=== PATIENT | male | born 1930 | race Caucasian/White ===

== ENCOUNTER → 2016-05-02 | Outpatient (CLI) | payer OTHER, MEDICARE ==
[~2016-05-02] MED LIST: ASPI-232; CLN150 PO; CLOP1TAB15 PO; FINA5TAB PO; HYT/2 PO; PRLSR20 PO; TNR25 PO; ZCR40 PO
[2016-05-02 11:05] LABS: BASO % 0.4 %; BASO ABS # 0.03 K/uL (0-0.2); COMPLETE YES; EOS % 1.9 %; HEMATOCRIT 51.1 % (42-52); IG% 0.3 %; LYMPH % 24.1 %; MEAN CELL VOLUME 87.4 fL (80-100); MEAN CORPUSCULAR HEMOGLOBIN 30.3 pg (25-34); MEAN CORPUSCULAR HGB CONC 34.6 g/dl (32-36); MEAN PLATELET VOLUME 10.9 fL (7.4-10.4); MONO % 7.1 %; NEUT % 66.2 %; PLATELET COUNT 180 K/uL (130-400); RED BLOOD COUNT 5.85 M/uL (4.7-6.1); WHITE BLOOD COUNT 7.46 K/uL (4.8-10.8)
[2016-05-02 11:32] LABS: ESTIMATED AVERAGE GLUCOSE 120 mg/dl; HA1C FLAG Normal (Normal)
[2016-05-02 11:36] LABS: ALT/SGPT 25 U/L (12-78); AST/SGOT 18 U/L (15-37); BLOOD UREA NITROGEN 25 mg/dl (7-18); BUN/CREATININE RATIO 22.6 (10-20); CALCIUM 9.1 mg/dl (8.5-10.1); CARBON DIOXIDE 29 mmol/L (21-32); CHLORIDE 105 mmol/L (98-107); GLUCOSE 96 mg/dl (70-99); POTASSIUM 4.3 mmol/L (3.5-5.1); SODIUM 143 mmol/L (136-145); URIC ACID 5.3 mg/dl (2.6-7.2)
[2016-05-02 13:35] LABS: URINE APPEARANCE CLOUDY (CLEAR); URINE BILIRUBIN NEG (NEG); URINE COLOR YELLOW; URINE NITRITE POS (NEG); URINE PH 6.5 (4.5-7.5); URINE SPECIFIC GRAVITY 1.017 (1.000-1.030); UROBILINOGEN NEG (NEG); ZZUR CULT IF INDIC CLEAN CATCH YES
[2016-05-02 13:52] LABS: MANUAL MICROSCOPIC REQUIRED? NO; REVIEW REQ? NO
--- NOTE | 2016-05-06 10:48 | CODING QUERY MEDICAL NECESSITY ---
SUPPORTING DIAGNOSIS NEEDED Dr. Wilson, A supporting diagnosis is required for the test/procedure performed on this patient in order for us to be reimbursed by the patient's insurance. Please provide a supporting diagnosis for the following test/procedure listed below next to the test name along with your signature. *If there is no additional diagnosis for this patient that would support the following test/procedure please document that below next to the test/procedure. Test(s)/Procedure(s) that require a supporting diagnosis: * [id number] GLYCATED HEMOGLOBIN DIAGNOSIS: DATE OF SERVICE: 05/02/16 Provider Signature: Date: Thank you Gabriele Lloyd [facility] Information Management Once completed, please kindly fax back to [phone] For questions please call [phone]
== END | disposition home or self-care (01) ==
LOC: C.LAB1850 10:13
PROVIDERS: ATTEND Internal Medicine
DX: K22.70 Barrett's esophagus without dysplasia (principal); R73.9 Hyperglycemia, unspecified

== ENCOUNTER → 2016-07-05 | Outpatient (CLI) | payer OTHER, MEDICARE ==
[2016-07-05 09:57] LABS: URINE APPEARANCE CLOUDY (CLEAR); URINE BILIRUBIN NEG (NEG); URINE COLOR YELLOW; URINE NITRITE NEG (NEG); URINE SPECIFIC GRAVITY 1.018 (1.000-1.030); UROBILINOGEN NEG (NEG)
[2016-07-05 09:58] LABS: MANUAL MICROSCOPIC REQUIRED? NO; REVIEW REQ? NO
== END | disposition home or self-care (01) ==
LOC: C.LAB1850 08:31
PROVIDERS: ATTEND Internal Medicine
DX: R30.0 Dysuria (principal)

== ENCOUNTER → 2016-10-13 | Outpatient (CLI) | payer OTHER, MEDICARE ==
[2016-10-13 09:38] LABS: BASO % 0.6 %; BASO ABS # 0.03 K/uL (0-0.2); COMPLETE YES; EOS % 2.4 %; HEMATOCRIT 53.3 % (42-52); IG% 0.2 %; LYMPH % 30.4 %; LYMPH ABS # 1.54 K/uL (1.2-3.4); MEAN CELL VOLUME 87.4 fL (80-100); MEAN CORPUSCULAR HEMOGLOBIN 28.9 pg (25-34); MEAN PLATELET VOLUME 10.6 fL (7.4-10.4); MONO % 10.5 %; NEUT % 55.9 %; PLATELET COUNT 166 K/uL (130-400); WHITE BLOOD COUNT 5.06 K/uL (4.8-10.8)
[2016-10-13 09:44] LABS: URINE APPEARANCE CLEAR (CLEAR); URINE BILIRUBIN NEG (NEG); URINE COLOR YELLOW; URINE EPITHELIAL CELL AUTO 0-5 /lpf (0-5); URINE NITRITE NEG (NEG); URINE PH 7.5 (4.5-7.5); URINE SPECIFIC GRAVITY 1.014 (1.000-1.030); UROBILINOGEN NEG (NEG)
[2016-10-13 09:51] LABS: MANUAL MICROSCOPIC REQUIRED? NO; REVIEW REQ? YES
[2016-10-13 09:59] LABS: ALT/SGPT 29 U/L (12-78); AST/SGOT 20 U/L (15-37); BLOOD UREA NITROGEN 23 mg/dl (7-18); BUN/CREATININE RATIO 20.6 (10-20); CALCIUM 9.2 mg/dl (8.5-10.1); CARBON DIOXIDE 28 mmol/L (21-32); CHLORIDE 107 mmol/L (98-107); CHOLESTEROL 134 mg/dl (0-200); GLUCOSE 103 mg/dl (70-99); POTASSIUM 3.9 mmol/L (3.5-5.1); SODIUM 141 mmol/L (136-145); TRIGLYCERIDES 130 mg/dl (0-150); VERY LOW DENSITY LIPOPROT CALC 26 mg/dl
[2016-10-13 10:02] LABS: CHOLESTEROL/HDL RATIO 2.7; HDL CHOLESTEROL 49 mg/dl; LDL CHOLESTEROL CALCULATED 59 mg/dl
[2016-10-13 10:32] LABS: ESTIMATED AVERAGE GLUCOSE 126 mg/dl; HA1C FLAG Normal (Normal)
--- NOTE | 2016-10-21 08:37 | CODING QUERY MEDICAL NECESSITY ---
SUPPORTING DIAGNOSIS NEEDED Dr. Wilson, A supporting diagnosis is required for the test/procedure performed on this patient in order for us to be reimbursed by the patient's insurance. Please provide a supporting diagnosis for the following test/procedure listed below next to the test name along with your signature. *If there is no additional diagnosis for this patient that would support the following test/procedure please document that below next to the test/procedure. Test(s)/Procedure(s) that require a supporting diagnosis: * [id number] GLYCATED HEMOGLOBIN DIAGNOSIS: DATE OF SERVICE: 10/13/16 Provider Signature: Date: Thank you Gabriele Lloyd [facility] Information Management Once completed, please kindly fax back to [phone] For questions please call [phone]
== END | disposition home or self-care (01) ==
LOC: C.LAB1850 07:07
PROVIDERS: ATTEND Internal Medicine
DX: N39.0 Urinary tract infection, site not specified (principal); R73.9 Hyperglycemia, unspecified

== ENCOUNTER → 2017-04-18 | Outpatient (CLI) | payer OTHER, MEDICARE ==
[2017-04-18 09:34] LABS: BASO % 0.4 %; BASO ABS # 0.03 K/uL (0-0.2); EOS % 2.2 %; EOS ABS # 0.15 K/uL (0-0.5); IG# 0.01 K/uL (0.00-0.02); LYMPH % 29.1 %; LYMPH ABS # 1.95 K/uL (1.2-3.4); MEAN CELL VOLUME 88.3 fL (80-100); MEAN PLATELET VOLUME 11.3 fL (7.4-10.4); MONO ABS # 0.74 K/uL (0.11-0.59); NEUT % 57.2 %; NEUT ABS # 3.83 K/uL (1.4-6.5); PLATELET COUNT 180 K/uL (130-400); RED CELL DISTRIBUTION WIDTH CV 14.2 % (11.5-14.5); WHITE BLOOD COUNT 6.71 K/uL (4.8-10.8)
[2017-04-18 09:59] LABS: HEMOGLOBIN A1C 5.9 % (4.5-5.6)
[2017-04-18 10:55] LABS: ALT/SGPT 26 U/L (12-78); AST/SGOT 17 U/L (15-37); BLOOD UREA NITROGEN 24 mg/dl (7-18); CARBON DIOXIDE 28 mmol/L (21-32); CHOLESTEROL 130 mg/dl (0-200); CREATININE 1.11 mg/dl (0.60-1.40); GLUCOSE 88 mg/dl (70-99); POTASSIUM 3.9 mmol/L (3.5-5.1); SODIUM 140 mmol/L (136-145)
[2017-04-18 11:06] LABS: LDL CHOLESTEROL CALCULATED 56 mg/dl
== END | disposition home or self-care (01) ==
LOC: C.LAB1850 07:33
PROVIDERS: ATTEND Internal Medicine
DX: N39.0 Urinary tract infection, site not specified (principal)

== ENCOUNTER 2017-04-28 11:32 | Emergency (ER) | payer OTHER, MEDICARE ==
[~2017-04-28] VITALS: Ht 177.8 cm; Wt 70.0 kg
[2017-04-28 11:47] VITALS: TEMP 36.4; Ht 177.8 cm; Wt 70.0 kg
[2017-04-28 12:11] VITALS: O2SAT 98
[2017-04-28] MEDS ORDERED: NITR50CA39 PO (12:14)
[2017-04-28] MEDS ORDERED: CLN150 PO (12:14)
[2017-04-28] MEDS ORDERED: PANT20TA2 PO (12:14)
[2017-04-28] MEDS ORDERED: XYLOCAINE 1%/SOD BICARB 20 ML VIAL INFIL ONE (12:15)
[2017-04-28 12:35] VITALS: BP 125/88; O2SAT 97
[2017-04-28 12:36] VITALS: PULSE 58
--- NOTE | 2017-04-28 14:02 | EMERGENCY ROOM VISIT NOTE ---
History Report prepared by Negin: Sandee Morejon Under the Supervision of: Dr. Ilya Sommer M.D. 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 The patient was coming to the hospital to visit his . While he was walking in the parking lot he tripped and fell. He hit his face on the pavement. He cut his upper lip and is currently complaining of some pain around the area. The area is actively bleeding. The patient denies any other injuries from his fall. His glasses did not break. The patient denies any LOC. He denies any headache, jaw pain, dental pain, neck pain, cough, congestion, and any injury to his extremities. While he was in the parking lot someone checked his pulse and found it to be 30 BPM and the patient was brought to the ED for further evaluation. The patient states that he had a routine physical examination last week that was normal. He does take aspirin and Plavix. His tetanus is up to date. 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 Pt denies jaw pain, dental pain, congestion, and extremity injury. Review of Systems See HPI for pertinent positives & negatives. A total of 10 systems reviewed and were otherwise negative. Past Medical & Surgical Medical Problems: (1) cataract surgery (2) Diabetes mellitus (3) GERD (gastroesophageal reflux disease) (4) Heart disease (5) HTN (hypertension) (6) Myocardial infarction Surgical Problems: (1) Hx of tonsillectomy Family History Diabetes mellitus Heart disease Social History Smoking Status: Never Smoker Alcohol Use: occasionally Marital Status: Housing Status: lives with significant other Occupation Status: retired Current/Historical Medications Scheduled Aspirin (Aspir-81), 1 TABLET DAILY Atenolol (Atenolol), 12.5 MG PO BID Clopidogrel (Plavix), 1 TAB PO DAILY Finasteride (Proscar), 1 TAB PO DAILY Nitrofurantoin Macrocrystals (Nitrofurantoin Macrocryst), 50 MG PO DAILY Pantoprazole Sodium (Protonix), 20 MG PO DAILY Simvastatin (Simvastatin), 40 MG PO DAILY Sulindac (Sulindac), 150 MG PO DAILY Terazosin Hcl (Hytrin), 2 MG PO DAILY Allergies Coded Allergies: Cefuroxime (Verified Allergy, Unknown, 05/15/09) Sulfa Drugs (Verified Allergy, Unknown, 05/15/09) Physical Exam Vital Signs Date Time Temp Pulse Resp B/P (MAP) Pulse Ox O2 Delivery O2 Flow Rate FiO2 04/28/17 12:36 58 04/28/17 12:35 61 18 125/88 97 Room Air 04/28/17 12:11 98 Room Air 04/28/17 11:47 36.4 36 18 119/74 97 Room Air Physical Exam GENERAL: Patient is in no acute distress. HEENT: Moist mucous membranes, dried blood on his face, apparent laceration to the left upper lip which is difficult to describe as it is crusted with blood. No dental trauma. Normal bite. No scalp hematomas. Once the laceration was cleansed it was noted to be 2cm stellate macerated and just touching the edge of the clint border confined mostly to the mucous membrane portion of the lip. NECK: No stridor, no adenopathy, no meningismus, trachea is midline, no tenderness to posterior C-spine. LUNGS: Clear to auscultation bilaterally, no wheeze, no rhonchi, breath sounds equal. HEART: Somewhat irregular rhythm with a normal rate, no murmurs. ABDOMEN: Soft, nontender, bowel sounds positive, no hernias, no peritonitis. EXTREMITIES: No cyanosis or edema, full range of motion of all the joints without pain or difficulty, no signs for acute trauma. NEUROLOGIC: Oriented x 3, no acute motor or sensory deficits, no focal weakness. SKIN: No rash, no jaundice, no diaphoresis. Medical Decision & Procedures Procedure Location: upper left lip Total length: 2 cm Complexity: simple Verbal consent was obtained after the risks and benefits were explained, including but not limited to bleeding, scarring, infection, pain, and bone/joint /nerve damage. At this time, the risks of the procedure are less than the risks of NOT performing the procedure. A time out was taken and the correct patient and site identified. The skin was prepped with betadine. The target area was anesthetized with 2 ml of 1% lidocaine without epinephrine. Cleaned with wet 4x4 thoroughly. The skin was re-prepped with betadine and a sterile field set. The wound was explored for foreign bodies and none found. Examination revealed no injury to deep structures such as tendons, bone, or significant blood vessels. Debridement was not performed. The wound edges were approximated using 3, 4-0 simple interrupted Vicryl sutures. Hemostasis and excellent approximation was achieved. Detailed wound care instructions and signs and symptoms of infection reviewed with the patient. No complications and the patient tolerated the procedure well. ECG Indication: bradycardia Rate (beats per minute): 66 Rhythm: normal sinus, other (significant baseline artifact) Findings: RBBB, no ectopy, other (ECG interpreted by myself) Comparison ECG Date: 07/08/14 Change: no significant change ED Course 1204: The patient was evaluated in room B1. A complete history and physical exam was performed. 1212: At this time I performed a laceration repair. Please see the procedure note above for further details. 1215: Lidocaine HCl 2 ml 1230: I reassessed the patient at this time. He is feeling better and resting comfortably. I discussed the results and treatment plan with the patient. I answered all pertaining questions that he had. He expressed understanding and verbalized agreement. The patient will be discharged home. Medical Decision Differential diagnoses includes facial fracture, lip laceration, head or neck injury, extremity trauma, syncope, dysrhythmia. The patient presents with a left upper lip laceration after falling in the hospital parking lot. He does not want imaging or any laboratory testing. He is here only to have the laceration repair. He is not concerned about scarring. His tetanus is current. He does not have a headache and there was no scalp trauma. The patient was brought to a higher level of care as his pulse was recorded at 30. He was awake and interactive though during this time with a good blood pressure. On the monitor, he has fairly frequent PVCs, I suspect when taking the pulse, it was difficult to feel the PVCs and thus, the pulse was recorded lower than actual. EKG shows a normal sinus rhythm, there is a right bundle-branch block. No ischemia. The EKG is unchanged compared to previous. The patient's laceration was repaired as above, no complications. The patient is very anxious to leave, he has agreed to return if worsening. Medication Reconcilliation Current Medication List: was personally reviewed by me Blood Pressure Screening Patient's blood pressure: Normal blood pressure Impression Primary Impression: Fall Additional Impression: Lip laceration Scribe Attestation The scribe's documentation has been prepared under my direction and personally reviewed by me in its entirety. I confirm that the note above accurately reflects all work, treatment, procedures, and medical decision making performed by me. Departure Information Dispostion Home / Self-Care Referrals Drew Wilson M.D. (PCP) Forms HOME CARE DOCUMENTATION FORM, IMPORTANT VISIT INFORMATION Patient Instructions My [facility] Additional Instructions sutures out 5-7 days as discussed if they do not dissolve keep clean with water return for fever, redness, drainage consider seeing dentist to be sure your teeth are ok Problem Qualifiers Primary Impression: Fall Encounter type: initial encounter Qualified Codes: W19.XXXA - Unspecified fall, initial encounter
== END 2017-04-28 12:41 | disposition home or self-care (01) ==
LOC: C.EDB 11:33
DX: S01.511A Laceration without foreign body of lip, initial encounter (principal); W01.0XXA Fall on same level from slipping, tripping and stumbling without subsequent striking against object, initial encounter; Y92.481 Parking lot as the place of occurrence of the external cause; E11.9 Type 2 diabetes mellitus without complications; K21.9 Gastro-esophageal reflux disease without esophagitis; I11.9 Hypertensive heart disease without heart failure; I25.2 Old myocardial infarction; Z83.3 Family history of diabetes mellitus; Z82.49 Family history of ischemic heart disease and other diseases of the circulatory system; Z79.82 Long term (current) use of aspirin; Z79.02 Long term (current) use of antithrombotics/antiplatelets; Z79.899 Other long term (current) drug therapy

== ENCOUNTER 2017-05-04 07:40 | Emergency (ER) | payer OTHER, MEDICARE ==
[~2017-05-04 07:40] MED LIST changes: +NITR50CA39 PO; +PANT20TA2 PO; -PRLSR20 PO
[2017-05-04 07:41] VITALS: BP 121/78; PULSE 88; TEMP 36.7; O2SAT 96
--- NOTE | 2017-05-04 08:42 | EMERGENCY ROOM VISIT NOTE ---
ED Visit Note First contact with patient: 07:46 CHIEF COMPLAINT: Suture removal This patient returns to the ED today for removal of sutures that were placed 6 days ago. There has been no swelling, redness, or drainage from the wound. There is a large scab formed over the suture line. The patient feels like the laceration is healing well. REVIEW OF SYSTEMS: Head: No headache, injury or neck pain. Skin: No rash, new lesions, or masses. General: No fever or chills, fatigue, loss of appetite , or significant recent weight gain or loss. PMH: The patient is healthy; there is no significant medical or surgical history. SOCIAL HISTORY: Patient lives at home. PHYSICAL EXAM: Vital Signs: Reviewed Nurse's notes. There is a sutured wound on the upper lip, left side with a large scab. With no signs of infection. There is no erythema, swelling, or tenderness. EMERGENCY DEPARTMENT COURSE: The patient had absorbable sutures placed. There is one at the most distal end of the laceration that has not absorbed and is easily accessible. I did educate the patient that removing the scab to remove stitches would be more harmful is are as wound healing goes and scarring. He felt comfortable with the plan for continued wound care. He will follow-up with his PCP for reevaluation. Patient will return to the ER for worsening of symptoms or any medical concerns. The sutures were removed without any difficulty and there was no separation of the wound edges. DIAGNOSIS: Healing laceration and suture removal DISCHARGE INSTRUCTIONS AND TREATMENT: Wash any remaining crusts off of the wound today and resume your normal activities.
== END 2017-05-04 07:53 | disposition home or self-care (01) ==
LOC: C.EDB 07:40 → C.EDA 07:53
DX: S01.511D Laceration without foreign body of lip, subsequent encounter (principal); X58.XXXD Exposure to other specified factors, subsequent encounter

== ENCOUNTER 2017-05-08 07:44 | Emergency (ER) | payer OTHER, MEDICARE ==
[~2017-05-08] VITALS: Ht 177.8 cm; Wt 72.4 kg
[2017-05-08 07:49] VITALS: BP 100/64; PULSE 62; TEMP 36.4; O2SAT 97; Ht 177.8 cm; Wt 72.4 kg
--- NOTE | 2017-05-08 08:11 | EMERGENCY ROOM VISIT NOTE ---
ED Visit Note First contact with patient: 08:00 CHIEF COMPLAINT: Suture removal This patient returns to the ED today for removal of sutures that were placed 10days ago. There has been no swelling, redness, or drainage from the wound. The patient feels like the laceration is healing well. REVIEW OF SYSTEMS: A complete 6-point Review of Systems was discussed with the patient, with pertinent positives and negatives listed in the History of Present Illness. All remaining Review of Systems questions can be considered negative unless otherwise specified. PMH: The patient is healthy; there is no significant medical or surgical history. SOCIAL HISTORY: Patient lives at home. PHYSICAL EXAM: Vital Signs: Reviewed Nurse's notes. There is a sutured wound on the upper lip with no signs of infection. There is no erythema, swelling, or tenderness. EMERGENCY DEPARTMENT COURSE: The sutures were removed without any difficulty and there was no separation of the wound edges. He was here on the 25th for removal however it was not ready to be removed. Problem List Medical Problems: (1) cataract surgery Status: Resolved (2) Diabetes mellitus Status: Chronic (3) GERD (gastroesophageal reflux disease) Status: Chronic (4) Heart disease Status: Chronic (5) HTN (hypertension) Status: Chronic (6) Myocardial infarction Status: Resolved Surgical Problems: (1) Hx of tonsillectomy Status: Resolved Current/Historical Medications Scheduled Aspirin (Aspir-81), 1 TABLET QAM Atenolol (Atenolol), 12.5 MG PO BID Clopidogrel (Plavix), 1 TAB PO QAM Finasteride (Proscar), 1 TAB PO HS Nitrofurantoin Macrocrystals (Nitrofurantoin Macrocryst), 50 MG PO HS Pantoprazole Sodium (Protonix), 20 MG PO DAILY Simvastatin (Simvastatin), 40 MG PO HS Sulindac (Sulindac), 150 MG PO BID Terazosin Hcl (Hytrin), 2 MG PO HS Allergies Coded Allergies: Cefuroxime (Verified Allergy, Unknown, 05/04/17) Sulfa Drugs (Verified Allergy, Unknown, 05/04/17) Vital Signs Date Time Temp Pulse Resp B/P (MAP) Pulse Ox O2 Delivery O2 Flow Rate FiO2 05/08/17 07:49 36.4 62 20 100/64 97 Room Air Departure Information Impression Primary Impression: Encounter for removal of sutures Dispostion Home / Self-Care Condition GOOD Referrals Drew Wilson M.D. (PCP) Patient Instructions My [facility] Additional Instructions DISCHARGE INSTRUCTIONS AND TREATMENT: Wash any remaining crusts off of the wound today and resume your normal activities.
== END 2017-05-08 08:24 | disposition home or self-care (01) ==
LOC: C.EDB 07:44 → C.EDA 08:24
DX: S01.511D Laceration without foreign body of lip, subsequent encounter (principal); X58.XXXD Exposure to other specified factors, subsequent encounter; E11.9 Type 2 diabetes mellitus without complications; K21.9 Gastro-esophageal reflux disease without esophagitis; I10 Essential (primary) hypertension; I25.2 Old myocardial infarction; Z79.82 Long term (current) use of aspirin

== ENCOUNTER → 2017-06-26 | Outpatient (CLI) | payer OTHER, MEDICARE ==
[2017-06-26 15:07] LABS: BLOOD UREA NITROGEN 26 mg/dl (7-18); CALCIUM 8.9 mg/dl (8.5-10.1); CARBON DIOXIDE 30 mmol/L (21-32); CREATININE 1.22 mg/dl (0.60-1.40); GLUCOSE 114 mg/dl (70-99); POTASSIUM 4.1 mmol/L (3.5-5.1); SODIUM 141 mmol/L (136-145)
== END | disposition home or self-care (01) ==
LOC: C.LAB1850 12:29
PROVIDERS: ATTEND Internal Medicine Cardiovascular Disease
DX: I49.3 Ventricular premature depolarization (principal)

== ENCOUNTER → 2017-08-10 | Outpatient (CLI) | payer OTHER, MEDICARE ==
[2017-08-10 09:55] LABS: ALBUMIN 3.8 gm/dl (3.4-5.0); TOTAL PROTEIN 6.4 gm/dl (6.4-8.2)
== END | disposition home or self-care (01) ==
LOC: C.LAB1850 08:18
PROVIDERS: ATTEND Podiatrist
DX: B35.1 Tinea unguium (principal)

== ENCOUNTER 2017-11-26 15:12 | Inpatient (IN) | payer OTHER, MEDICARE ==
[~2017-11-26] VITALS: Ht 177.8 cm; Wt 70.8 kg
[2017-11-26] MEDS ORDERED: LIDOCAINE HCL 2% VISC SOLN 20 ML UDC PO STA (15:34)
[2017-11-26] MEDS ORDERED: SODIUM CHLORIDE 0.9% 1000ML 500 ML IV STA (15:34)
[2017-11-26] MEDS ORDERED: ALUMINUM/MAGNESIUM SUSP 30 ML UDC PO STA (15:34)
[2017-11-26] MEDS ORDERED: OPTIRAY 320 IV PRN (15:45)
--- NOTE | 2017-11-26 16:03 | DIAGNOSTIC IMAGING REPORT ---
CHEST ONE VIEW PORTABLE CLINICAL HISTORY: Abdominal pain. COMPARISON STUDY: Chest radiograph July 31, [address] of the chest, abdomen and pelvis July 08, 2014. FINDINGS: There is no pneumothorax or pleural effusion. A large hiatal hernia is noted. Left lower lung airspace opacity is present. Mild cardiomegaly is unchanged. There is no evidence for pulmonary edema. IMPRESSION: Large hiatal hernia. Left lower lung opacity favors atelectasis although pneumonia could appear similar. Electronically signed by: Chuckie Maldonado M.D. 11/26/2017 4:02 PM Dictated Date/Time: 11/26/2017 4:01 PM
[2017-11-26 16:05] LABS: BASO % 0.1 %; BASO ABS # 0.01 K/uL (0-0.2); EOS % 0.2 %; EOS ABS # 0.02 K/uL (0-0.5); HEMATOCRIT 54.2 % (42-52); HEMOGLOBIN 18.7 g/dL (14.0-18.0); IG# 0.03 K/uL (0.00-0.02); LYMPH % 8.2 %; MEAN CELL VOLUME 88.1 fL (80-100); MEAN CORPUSCULAR HEMOGLOBIN 30.4 pg (25-34); MEAN CORPUSCULAR HGB CONC 34.5 g/dl (32-36); MEAN PLATELET VOLUME 11.2 fL (7.4-10.4); MONO % 6.3 %; MONO ABS # 0.69 K/uL (0.11-0.59); NEUT % 84.9 %; NEUT ABS # 9.32 K/uL (1.4-6.5); PLATELET COUNT 149 K/uL (130-400); RED CELL DISTRIBUTION WIDTH CV 14.4 % (11.5-14.5); RED CELL DISTRIBUTION WIDTH SD 45.9 fL (36.4-46.3); WHITE BLOOD COUNT 10.97 K/uL (4.8-10.8)
[2017-11-26 16:19] LABS: PTT PATIENT 25.1 SECONDS (21.0-31.0)
[2017-11-26 16:25] LABS: ALBUMIN 3.9 gm/dl (3.4-5.0); ALKALINE PHOSPHATASE 50 U/L (45-117); ALT/SGPT 30 U/L (12-78); AST/SGOT 19 U/L (15-37); BLOOD UREA NITROGEN 19 mg/dl (7-18); CALCIUM 8.7 mg/dl (8.5-10.1); CARBON DIOXIDE 26 mmol/L (21-32); CREATININE 1.16 mg/dl (0.60-1.40); GLUCOSE 139 mg/dl (70-99); LIPASE 7057 U/L (73-393); POTASSIUM 4.1 mmol/L (3.5-5.1); SODIUM 135 mmol/L (136-145); TOTAL PROTEIN 6.7 gm/dl (6.4-8.2)
[2017-11-26] MEDS ORDERED: ONDANSETRON INJ 2 MG/ML 2 ML VIAL IV STA (16:46)
[2017-11-26] MEDS ORDERED: SODIUM CHLORIDE 0.9% 500ML 500 ML IV STA (16:46)
--- NOTE | 2017-11-26 16:49 | EMERGENCY ROOM VISIT NOTE ---
History Report prepared by Negin: Gabriela Norris Under the Supervision of: Dr. Ilya Sommer M.D. 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 He states that since this 1030 this morning, he has had general chest pain which he thought was pancreatitis which he has had in the past. He rates his pain as a 5/10 in severity and reports that stress worsens his pain. The patient states that he is the primary health provider for his and this is causing him some stress. Pt has some nausea and upper abdominal pain but denies any back pain or SOB. 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 A total of 10 systems reviewed and were otherwise negative. Past Medical & Surgical Medical Problems: (1) cataract surgery (2) Diabetes mellitus (3) GERD (gastroesophageal reflux disease) (4) Heart disease (5) HTN (hypertension) (6) Myocardial infarction Surgical Problems: (1) Hx of tonsillectomy Family History Diabetes mellitus Heart disease Social History Smoking Status: Former Smoker Alcohol Use: occasionally Marital Status: Housing Status: lives with significant other Occupation Status: retired Current/Historical Medications Scheduled Aspirin (Aspir-81), 1 TABLET QAM Atenolol (Atenolol), 12.5 MG PO BID Clopidogrel (Plavix), 1 TAB PO QAM Finasteride (Proscar), 1 TAB PO DAILY Nitrofurantoin Macrocrystals (Nitrofurantoin Macrocryst), 50 MG PO HS Pantoprazole Sodium (Protonix), 20 MG PO DAILY Simvastatin (Simvastatin), 40 MG PO HS Sulindac (Sulindac), 75 MG PO BID Terazosin Hcl (Hytrin), 2 MG PO HS Scheduled PRN Alprazolam (Xanax), 0.5 MG PO HS PRN for Sleep Ibuprofen (Advil), 200 MG PO TID PRN for Pain Allergies Coded Allergies: Cefuroxime (Verified Allergy, Unknown, 05/04/17) Sulfa Drugs (Verified Allergy, Unknown, 05/04/17) Physical Exam Vital Signs Date Time Temp Pulse Resp B/P (MAP) Pulse Ox O2 Delivery O2 Flow Rate FiO2 11/26/17 17:02 141/109 11/26/17 17:00 71 24 11/26/17 16:02 130/91 11/26/17 16:00 68 27 11/26/17 15:32 72 11/26/17 15:30 81 20 93 11/26/17 15:23 73 20 122/68 93 Room Air 11/26/17 15:23 93 Room Air 11/26/17 15:16 36.5 38 20 163/75 97 Room Air Physical Exam GENERAL: Patient is in no acute distress. HEENT: No acute trauma, normocephalic atraumatic, mucous membranes dry, no nasal congestion, no scleral icterus. NECK: No stridor, no adenopathy, no meningismus, trachea is midline. LUNGS: Clear to auscultation bilaterally, no wheeze, no rhonchi, breath sounds equal. HEART: Bradycardic and irregular rhythm. No murmurs. ABDOMEN: Soft, mildly tender in the epigastric area, bowel sounds positive, no hernias, no peritonitis. EXTREMITIES: No cyanosis or edema, full range of motion of all the joints without pain or difficulty, no signs for acute trauma. NEUROLOGIC: Oriented x 3, no acute motor or sensory deficits, no focal weakness. SKIN: No rash, no jaundice, no diaphoresis. Medical Decision & Procedures ER Provider Diagnostic Interpretation: Radiology results as stated below per my review and radiologist interpretation: CHEST ONE VIEW PORTABLE CLINICAL HISTORY: Abdominal pain. COMPARISON STUDY: Chest radiograph July 31, [address] of the chest, abdomen and pelvis July 08, 2014. FINDINGS: There is no pneumothorax or pleural effusion. A large hiatal hernia is noted. Left lower lung airspace opacity is present. Mild cardiomegaly is unchanged. There is no evidence for pulmonary edema. IMPRESSION: Large hiatal hernia. Left lower lung opacity favors atelectasis although pneumonia could appear similar. Electronically signed by: Chuckie Maldonado M.D. 11/26/2017 4:02 PM Laboratory Results 11/26/17 13:40 Red Blood Count 6.15, Mean Corpuscular Volume 88.1, Mean Corpuscular Hemoglobin 30.4, Mean Corpuscular Hemoglobin Concent 34.5, Mean Platelet Volume 11.2, Neutrophils (%) (Auto) 84.9, Lymphocytes (%) (Auto) 8.2, Monocytes (%) (Auto) 6.3, Eosinophils (%) (Auto) 0.2, Basophils (%) (Auto) 0.1, Neutrophils # (Auto) 9.32, Lymphocytes # (Auto) 0.90, Monocytes # (Auto) 0.69, Eosinophils # (Auto) 0.02, Basophils # (Auto) 0.01 11/26/17 13:40 Test 11/26/17 13:40 11/26/17 16:25 White Blood Count 10.97 K/uL (4.8-10.8) Red Blood Count 6.15 M/uL (4.7-6.1) Hemoglobin 18.7 g/dL (14.0-18.0) Hematocrit 54.2 % (42-52) Mean Corpuscular Volume 88.1 fL (80-100) Mean Corpuscular Hemoglobin 30.4 pg (25-34) Mean Corpuscular Hemoglobin Concent 34.5 g/dl (32-36) Platelet Count 149 K/uL (130-400) Mean Platelet Volume 11.2 fL (7.4-10.4) Neutrophils (%) (Auto) 84.9 % Lymphocytes (%) (Auto) 8.2 % Monocytes (%) (Auto) 6.3 % Eosinophils (%) (Auto) 0.2 % Basophils (%) (Auto) 0.1 % Neutrophils # (Auto) 9.32 K/uL (1.4-6.5) Lymphocytes # (Auto) 0.90 K/uL (1.2-3.4) Monocytes # (Auto) 0.69 K/uL (0.11-0.59) Eosinophils # (Auto) 0.02 K/uL (0-0.5) Basophils # (Auto) 0.01 K/uL (0-0.2) RDW Standard Deviation 45.9 fL (36.4-46.3) RDW Coefficient of Variation 14.4 % (11.5-14.5) Immature Granulocyte % (Auto) 0.3 % Immature Granulocyte # (Auto) 0.03 K/uL (0.00-0.02) Prothrombin Time 10.8 SECONDS (9.0-12.0) Prothromb Time International Ratio 1.0 (0.9-1.1) Activated Partial Thromboplast Time 25.1 SECONDS (21.0-31.0) Partial Thromboplastin Ratio 1.0 Anion Gap 8.0 mmol/L (3-11) Estimated GFR () 64.8 Estimated GFR (Non- 55.9 BUN/Creatinine Ratio 16.4 (10-20) Calcium Level 8.7 mg/dl (8.5-10.1) Magnesium Level 2.1 mg/dl (1.8-2.4) Total Bilirubin 1.0 mg/dl (0.2-1) Aspartate Amino Transf (AST/SGOT) 19 U/L (15-37) Alanine Aminotransferase (ALT/SGPT) 30 U/L (12-78) Alkaline Phosphatase 50 U/L (45-117) Troponin I < 0.015 ng/ml (0-0.045) Total Protein 6.7 gm/dl (6.4-8.2) Albumin 3.9 gm/dl (3.4-5.0) Globulin 2.8 gm/dl (2.5-4.0) Albumin/Globulin Ratio 1.4 (0.9-2) Lipase 7057 U/L (73-393) Thyroid Stimulating Hormone (TSH) 1.210 uIu/ml (0.300-4.500) Urine Color YELLOW Urine Appearance CLEAR (CLEAR) Urine pH 7.0 (4.5-7.5) Urine Specific [place] 1.013 (1.000-1.030) Urine Protein NEG (NEG) Urine Glucose (UA) NEG (NEG) Urine Ketones NEG (NEG) Urine Occult Blood NEG (NEG) Urine Nitrite NEG (NEG) Urine Bilirubin NEG (NEG) Urine Urobilinogen NEG (NEG) Urine Leukocyte Esterase TRACE (NEG) Urine WBC (Auto) 0 /hpf (0-5) Urine RBC (Auto) 0-4 /hpf (0-4) Urine Hyaline Casts (Auto) 0 /lpf (0-5) Urine Epithelial Cells (Auto) 0-5 /lpf (0-5) Urine Bacteria (Auto) NEG (NEG) Laboratory results reviewed by me. Medications Administered Medications (Trade) Dose Ordered Sig/Salima Route Start Time Stop Time Status Last Admin Dose Admin Sodium Chloride 500 ml @ 999 mls/hr Q31M STAT IV 11/26/17 15:34 11/26/17 16:04 DC 11/26/17 16:00 999 MLS/HR Lidocaine HCl (Viscous Lidocaine 2% Soln) 10 ml NOW STAT PO 11/26/17 15:34 11/26/17 15:37 DC 11/26/17 16:00 10 ML Al Hydroxide/Mg Hydroxide (Maalox Susp) 30 ml NOW STAT PO 11/26/17 15:34 11/26/17 15:37 DC 11/26/17 16:00 30 ML Sodium Chloride 500 ml @ 999 mls/hr Q31M STAT IV 11/26/17 16:46 11/26/17 17:16 DC 11/26/17 17:11 999 MLS/HR ECG Per My Interpretation Indication: chest pain Rate (beats per minute): 70 Rhythm: sinus rhythm Findings: PVC (frequent), RBBB Comparison ECG Date: 04/28/17 Change: Compared to prior, today's EKG shows multiple PVCs ED Course 1527: The patient was evaluated in room C9. A complete history and physical exam was performed. 1534: Ordered Maalox Susp 30 ml PO, Lidocaine HCl 10 ml PO, Sodium Chloride 500 ml @ 999 mls/hr IV 1636: I checked on the patient at this time. I informed him of his results and findings. 1637: Discussed the patient's case with Dr. Redd, [facility] Hospitalist. The patient will be evaluated for further management. Medical Decision Differential diagnosis: Etiologies such as cardiac ischemia, MA, pancreatitis, gastritis, AAA, bowel obstruction, dehydration, biliary colic, viral or foodborne illness, as well as others were entertained. There is a mild leukocytosis, this could be consistent with infection or just his pain. Hemoglobin was actually somewhat high. No significant electrolyte abnormality or kidney failure. No hepatitis. Pancreatitis was noted with a lipase over 7000. EKG showed a sinus rhythm with frequent PVCs. Cardiac enzyme testing 1 was not consistent with acute cardiac injury. Chest x-ray showed a hiatal hernia and some atelectasis, no pneumothorax, no free air. Urinalysis did not show evidence for infection. Abdominal and pelvis CT is pending. Patient received a GI cocktail, he was given IV saline, he received IV Zofran, he did not want anything for pain. The patient has been made n.p.o. He has pancreatitis and will require bowel rest, IV hydration and a hospital stay. I spoke to the patient and to case management. The on-call hospitalist was consulted. Medication Reconcilliation Current Medication List: was personally reviewed by me Blood Pressure Screening Patient's blood pressure: Elevated blood pressure Blood pressure disposition: Elevated BP felt to be situational Consults Time Called: 1635 Consulting Physician: Dr. Redd [facility] Hospitalist Returned Call: [phone] Discussed the patient's case with Dr. Redd [facility] Hospitalist. The patient will be evaluated for further management. Impression Primary Impression: Acute pancreatitis Additional Impression: Epigastric abdominal pain Scribe Attestation The scribe's documentation has been prepared under my direction and personally reviewed by me in its entirety. I confirm that the note above accurately reflects all work, treatment, procedures, and medical decision making performed by me. Departure Information Dispostion Being Evaluated By Hospitalist (Dr. Redd, [facility] Hospitalist) Referrals Drew Wilson M.D. (PCP) Patient Instructions My [facility] Problem Qualifiers
--- NOTE | 2017-11-26 17:11 | DIAGNOSTIC IMAGING REPORT ---
CT OF THE ABDOMEN AND PELVIS WITH CONTRAST CLINICAL HISTORY: Abdominal pain. Possible obstruction. COMPARISON STUDY: CT of the chest, abdomen and pelvis and right upper quadrant ultrasound July 08, 2014. TECHNIQUE: Following IV administration of 115 mL of Optiray-320, axial images of the abdomen and pelvis were obtained from the lung bases to the proximal femurs. Images were reviewed in the axial, sagittal, and coronal planes. IV contrast was administered without complication. A dose lowering technique was utilized adhering to the principles of ALARA. CT DOSE: 454.75 mGy.cm FINDINGS: A large hiatal hernia is noted. There is moderate cardiomegaly with extensive coronary artery calcification. Trace bilateral pleural effusions are noted. No pneumatosis, free air or portal venous gas is present. The liver, spleen and adrenal glands are unremarkable. Numerous bilateral water attenuation renal lesions reflect cysts. There is no hydronephrosis. Note is made of moderate inflammation centered on the pancreatic body and tail with moderate adjacent peripancreatic fluid. Apparent diminished enhancement within the pancreatic body is noted. The appendix is normal. Note is made of sigmoid diverticulosis. A moderate amount of stool is noted within the colon. Sigmoid colon wall thickening is noted without adjacent inflammation. The prostate is moderately enlarged. Bladder is moderately distended. No suspicious osseous lesion is noted. A small portion of the pancreatic duct may be dilated. IMPRESSION: 1. Findings consistent with acute pancreatitis. Moderate inflammation and fluid centered on the pancreatic tail and body. Apparent diminished enhancement within the pancreas body favors acute interstitial edematous pancreatitis. Pancreatic necrosis could appear similar although is considered less likely. A follow-up CT in one to 2 months to ensure resolution is recommended to exclude the unlikely possibility of an underlying mass. 2. Sigmoid wall thickening with diverticulosis. This is unchanged since prior CT of July 08, 2014 and likely chronic. 3. No bowel obstruction. 4. Large hiatal hernia. Electronically signed by: Chuckie Maldonado M.D. 11/26/2017 5:09 PM Dictated Date/Time: 11/26/2017 4:58 PM
[2017-11-26] MEDS ORDERED: IBUP-1050 PO (17:12)
[2017-11-26] MEDS ORDERED: ALPR-411 PO (17:12)
[2017-11-26] MEDS ORDERED: ACETAMINOPHEN IV 100 ML IV STA (17:12)
--- NOTE | 2017-11-26 17:18 | EMERGENCY ROOM VISIT NOTE ---
ED Visit Note First contact with patient: 15:27 The patient's abdominal and pelvis CT returned showing pancreatitis, this was of course consistent with his laboratory testing. There was no bowel obstruction. No acute surgical pathology.
--- NOTE | 2017-11-26 18:18 | History and Physical ---
History & Physical Date & Time of Service: Nov 26, 2017 at 17:52 Chief Complaint: Pain In Chest And Abdomen, Rising Blood Pressure Primary Care Physician: Drew Wilson M.D. History of Present Illness Source: patient 87yo male with history of CAD s/p multiple MIs and chronic systolic CHF who presents with abdominal pain beginning this am around 10am. He had eaten breakfast consisting of coffee, cheerios, and orange juice. The abdominal pain came on gradually and then got quite severe. The pain radiated into the chest. He had acute pancreatitis in 2014 and the pain today was quite similar to then. He denies heavy alcohol consumption (glass of wine occasionally). No nausea, emesis, diarrhea. Last bowel movement was this AM and was normal. During my assessment he was still having pain. He initially thought he was having another heart attack today but the pain today was different than previous heart attack associated pains. Past Medical/Surgical History PMH: 1. pre-T2DM 2. GERD 3. CAD s/p multiple MIs 4. HTN 5. acute pancreatitis 2014 - uncertain etiology 6. recurrent UTIs - on chronic antibiotic prophylaxis 7. BPH 8. chronic systolic CHF 2nd to ischemic cardiomyopathy - EF 30% (07/2017 echo) 9. hyperlipidemia PSH: 1. Hx of tonsillectomy 2. s/p coronary stents x 2 3. 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)) Immunizations History of Influenza Vaccine: Yes History of Tetanus Vaccine?: Yes History of Pneumococcal: Yes History of Hepatitis B Vaccine: No Allergies Coded Allergies: Cefuroxime (Verified Allergy, Unknown, 05/04/17) Sulfa Drugs (Verified Allergy, Unknown, 05/04/17) Home Medications Scheduled Aspirin (Aspir-81), 1 TABLET QAM Atenolol (Atenolol), 12.5 MG PO BID Clopidogrel (Plavix), 1 TAB PO QAM Finasteride (Proscar), 1 TAB PO DAILY Nitrofurantoin Macrocrystals (Nitrofurantoin Macrocryst), 50 MG PO HS Pantoprazole Sodium (Protonix), 20 MG PO DAILY Simvastatin (Simvastatin), 40 MG PO HS Sulindac (Sulindac), 75 MG PO BID Terazosin Hcl (Hytrin), 2 MG PO HS Scheduled PRN Alprazolam (Xanax), 0.5 MG PO HS PRN for Sleep Ibuprofen (Advil), 200 MG PO TID PRN for Pain Review of Systems Constitutional: No fever, No chills, No weight loss, No fatigue Eyes: No worsening of vision ENT: No sore throat, No trouble swallowing Respiratory: No cough, No shortness of breath, No dyspnea on exertion Cardiovascular: No chest pain, No orthopnea, No PND, No edema Abdomen: + pain, No nausea, No vomiting, No diarrhea, No GI bleeding Musculoskeletal: No joint pain Genitourinary - Male: No dysuria Neurologic: No numbness/tingling Psychiatric: + anxiety (due to 's medical problems) Endocrine: No fatigue Hematologic / Lymphatic: No abnormal bleeding/bruising Integumentary: No rash Physical Exam Vital Signs Date Time Temp Pulse Resp B/P (MAP) Pulse Ox O2 Delivery O2 Flow Rate FiO2 11/26/17 17:02 141/109 11/26/17 17:00 71 24 11/26/17 16:02 130/91 11/26/17 16:00 68 27 11/26/17 15:32 72 11/26/17 15:30 81 20 93 11/26/17 15:23 73 20 122/68 93 Room Air 11/26/17 15:23 93 Room Air 11/26/17 15:16 36.5 38 20 163/75 97 Room Air General Appearance: no apparent distress, + pertinent finding (looks younger than stated age) Head: normocephalic, atraumatic Eyes: PERRL (lens implants b/l ) ENT: + pertinent finding (MM slightly dry) Neck: supple, no adenopathy, thyroid normal, no JVD, no carotid bruits Respiratory/Chest: lungs clear, no respiratory distress, no accessory muscle use Cardiovascular: regular rate, rhythm, no gallop, no murmur, normal peripheral pulses, + extra beats Abdomen/GI: normal bowel sounds, soft, no organomegaly, + tenderness ( epigastric region - moderate; no peritoneal signs ) Back: normal inspection Extremities/Musculoskelatal: no pedal edema Neurologic/Psych: no motor/sensory deficits, alert, normal mood/affect, normal reflexes, oriented x 3 Skin: no rash Lymphatic: no adenopathy (no cervical LAD) Diagnostics Laboratory Results Results Past 24 Hours Test 11/26/17 13:40 11/26/17 16:25 Range/Units White Blood Count 10.97 4.8-10.8 K/uL Red Blood Count 6.15 4.7-6.1 M/uL Hemoglobin 18.7 14.0-18.0 g/dL Hematocrit 54.2 42-52 % Mean Corpuscular Volume 88.1 80-100 fL Mean Corpuscular Hemoglobin 30.4 25-34 pg Mean Corpuscular Hemoglobin Concent 34.5 32-36 g/dl Platelet Count 149 130-400 K/uL Mean Platelet Volume 11.2 7.4-10.4 fL Neutrophils (%) (Auto) 84.9 % Lymphocytes (%) (Auto) 8.2 % Monocytes (%) (Auto) 6.3 % Eosinophils (%) (Auto) 0.2 % Basophils (%) (Auto) 0.1 % Neutrophils # (Auto) 9.32 1.4-6.5 K/uL Lymphocytes # (Auto) 0.90 1.2-3.4 K/uL Monocytes # (Auto) 0.69 0.11-0.59 K/uL Eosinophils # (Auto) 0.02 0-0.5 K/uL Basophils # (Auto) 0.01 0-0.2 K/uL RDW Standard Deviation 45.9 36.4-46.3 fL RDW Coefficient of Variation 14.4 11.5-14.5 % Immature Granulocyte % (Auto) 0.3 % Immature Granulocyte # (Auto) 0.03 0.00-0.02 K/uL Prothrombin Time 10.8 9.0-12.0 SECONDS Prothromb Time International Ratio 1.0 0.9-1.1 Activated Partial Thromboplast Time 25.1 21.0-31.0 SECONDS Partial Thromboplastin Ratio 1.0 Sodium Level 135 136-145 mmol/L Potassium Level 4.1 3.5-5.1 mmol/L Chloride Level 101 98-107 mmol/L Carbon Dioxide Level 26 21-32 mmol/L Anion Gap 8.0 3-11 mmol/L Blood Urea Nitrogen 19 7-18 mg/dl Creatinine 1.16 0.60-1.40 mg/dl Estimated GFR () 64.8 Estimated GFR (Non- 55.9 BUN/Creatinine Ratio 16.4 10-20 Random Glucose 139 70-99 mg/dl Calcium Level 8.7 8.5-10.1 mg/dl Magnesium Level 2.1 1.8-2.4 mg/dl Total Bilirubin 1.0 0.2-1 mg/dl Aspartate Amino Transf (AST/SGOT) 19 15-37 U/L Alanine Aminotransferase (ALT/SGPT) 30 12-78 U/L Alkaline Phosphatase 50 45-117 U/L Troponin I < 0.015 0-0.045 ng/ml Total Protein 6.7 6.4-8.2 gm/dl Albumin 3.9 3.4-5.0 gm/dl Globulin 2.8 2.5-4.0 gm/dl Albumin/Globulin Ratio 1.4 0.9-2 Lipase 7057 73-393 U/L Thyroid Stimulating Hormone (TSH) 1.210 0.300-4.500 uIu/ml Urine Color YELLOW Urine Appearance CLEAR CLEAR Urine pH 7.0 4.5-7.5 Urine Specific [place] 1.013 1.000-1.030 Urine Protein NEG NEG Urine Glucose (UA) NEG NEG Urine Ketones NEG NEG Urine Occult Blood NEG NEG Urine Nitrite NEG NEG Urine Bilirubin NEG NEG Urine Urobilinogen NEG NEG Urine Leukocyte Esterase TRACE NEG Urine WBC (Auto) 0 0-5 /hpf Urine RBC (Auto) 0-4 0-4 /hpf Urine Hyaline Casts (Auto) 0 0-5 /lpf Urine Epithelial Cells (Auto) 0-5 0-5 /lpf Urine Bacteria (Auto) NEG NEG Diagnostic Radiology CT abd/pelvis - IMPRESSION: 1. Findings consistent with acute pancreatitis. Moderate inflammation and fluid centered on the pancreatic tail and body. Apparent diminished enhancement within the pancreas body favors acute interstitial edematous pancreatitis. Pancreatic necrosis could appear similar although is considered less likely. A follow-up CT in one to 2 months to ensure resolution is recommended to exclude the unlikely possibility of an underlying mass. 2. Sigmoid wall thickening with diverticulosis. This is unchanged since prior CT of July 08, 2014 and likely chronic. 3. No bowel obstruction. 4. Large hiatal hernia. CXR - IMPRESSION: Large hiatal hernia. Left lower lung opacity favors atelectasis although pneumonia could appear similar. EKG EKG - my reading - NSR, PVCs/bigeminy, RBBB, anterior Q waves, no acute ST changes Impression Assessment and Plan 87yo male with history of CAD s/p multiple MIs, chronic systolic CHF 2nd to ischemic cardiomyopathy, and idiopathic acute pancreatitis in 2015 who presents with another episode of acute pancreatitis. Clinically, lab-soliman, and radiographically his picture is consistent with such. There is a question of necrosis of the pancreatic body. In 2014 there was also a question of pancreatic necrosis but he did very well during that hospitalization. 1. acute pancreatitis - NPO, judicious IVF (EF on echo this year was 30%), pain control. Use lactated ringers for IVF. Obtain RUQ u/s to r/o biliary cause of his pancreatitis. If negative consider MRCP and/or outpatient EUS. He does not drink etoh, triglycerides were normal 1 month ago, and his calcium is normal. I asked the pharmacist to review his medication list and sulindac, which he has been taking for 30 years, is known to cause pancreatitis about 1% of the time. Will hold such as a precaution. Will ask GI to consult in the AM. Given the question of developing necrosis will cover with imipenem IV. Repeat lipase and lfts in am. 2. chest pain - suspect it was referred pain from #1 but given his CAD history will obtain [address] on telemetry. 3. CAD with prior MIs - serial troponins; continue his aspirin, BB, statin. 4. chronic systolic CHF - EF was 30% in July 2017. He certainly needs hydration but need to do so cautiously in light of depressed LV function. 5. polycythemia - he has had top-normal hemoglobins for 1-2 years but it is inching upwards more recently. His RBC count is also high. After hydration we will have to see where he settles. Could he have early PCV? Will need f/u after discharge. 6. DVT proph - heparin 5000 TID. 7. GERD - PPI. 8. BPH - alpha maite. 9. recurrent UTIs - hold sulindac (he reports using this chronically for UTI prevention). Continue macrobid. 10. FEN - NPO, LR at 75cc/hr, BMP in am. Resuscitation Status level 5 DNR VTE Prophylaxis Will order VTE Prophylaxis: Yes Note total visit time 75 minutes Additional Copies To Drew Wilson M.D.
[2017-11-26] MEDS ORDERED: NITROGLYCERIN 0.4 MG SL PER TAB CHARGE SL PRN (18:30)
[2017-11-26] MEDS ORDERED: ONDANSETRON INJ 2 MG/ML 2 ML VIAL IV PRN (18:30)
[2017-11-26 19:25] VITALS: BP 162/88; PULSE 73; TEMP 36.5; O2SAT 92; BMI 22.6
--- NOTE | 2017-11-26 19:38 | DIAGNOSTIC IMAGING REPORT ---
ABDOMINAL ULTRASOUND, RIGHT UPPER QUADRANT HISTORY: Acute pancreatitis. COMPARISON: Right upper quadrant ultrasound July 08, [address] of the abdomen and pelvis performed earlier today. FINDINGS: Exam was difficult due to suboptimal penetration. No hepatic lesions are identified. No gallstones are identified. There is no biliary ductal dilatation. Several right renal cysts are noted. The pancreas is obscured by overlying bowel gas. IMPRESSION: 1. Technically difficult exam due to suboptimal penetration. No gallstones or biliary ductal dilatation identified. 2. Obscured pancreas due to overlying bowel gas. 3. Multiple right renal cysts. Electronically signed by: Chuckie Maldonado M.D. 11/26/2017 7:36 PM Dictated Date/Time: 11/26/2017 7:31 PM
[2017-11-26] MEDS ORDERED: SULINDAC 150 MG TAB PO SCH (21:00)
[2017-11-26] MEDS: ALPRAZOLAM 0.5 MG TAB PO PRN (21:01)
[2017-11-26] MEDS: LACTATED RINGER'S 1000ML 1,000 ML IV SCH (21:01)
[2017-11-26] MEDS: IMIPENEM-CILASTATIN 250 MG in DEXTROSE 5% 100ML 100 ML IV SCH (21:01)
[2017-11-26] MEDS: NITROFURANTOIN MACROCRYSTALS 50 MG CAP PO SCH (21:03)
[2017-11-26] MEDS: SIMVASTATIN 40 MG TAB PO SCH (21:03)
[2017-11-26] MEDS: HEPARIN SOD 5000 UNIT/0.5 ML CARP SQ SCH (21:06)
[2017-11-26] MEDS ORDERED: NURSING VERBAL MED ORDER ONE (21:30)
[2017-11-26] MEDS ORDERED: PANTOprazole SOD 40 MG TAB PO SCH (22:00)
[2017-11-26] MEDS: MoRPHine SULFATE 2 MG/ML CARP IV PRN (23:07)
[2017-11-27] VITALS (10 sets, daily range): BP systolic 97–149; BP diastolic 58–73; PULSE 56–78; TEMP 36.6–37.9; O2SAT 91–99; Ht 177.8 cm; Wt 70.8 kg
[2017-11-27] MEDS: LACTATED RINGER'S 1000ML 1,000 ML IV SCH ×2 (04:24→15:43)
[2017-11-27] MEDS: IMIPENEM-CILASTATIN 250 MG in DEXTROSE 5% 100ML 100 ML IV SCH ×2 (04:24→10:06)
[2017-11-27] MEDS: MoRPHine SULFATE 2 MG/ML CARP IV PRN ×4 (04:25→16:08)
[2017-11-27] MEDS: HEPARIN SOD 5000 UNIT/0.5 ML CARP SQ SCH ×3 (05:14→21:44)
[2017-11-27 06:06] LABS: BASO % 0.1 %; BASO ABS # 0.01 K/uL (0-0.2); EOS % 0.1 %; EOS ABS # 0.01 K/uL (0-0.5); HEMATOCRIT 49.9 % (42-52); HEMOGLOBIN 17.1 g/dL (14.0-18.0); IG# 0.03 K/uL (0.00-0.02); LYMPH % 5.7 %; LYMPH ABS # 0.65 K/uL (1.2-3.4); MEAN CELL VOLUME 87.9 fL (80-100); MEAN CORPUSCULAR HEMOGLOBIN 30.1 pg (25-34); MEAN CORPUSCULAR HGB CONC 34.3 g/dl (32-36); MEAN PLATELET VOLUME 11.4 fL (7.4-10.4); MONO % 7.9 %; MONO ABS # 0.89 K/uL (0.11-0.59); NEUT % 85.9 %; NEUT ABS # 9.74 K/uL (1.4-6.5); PLATELET COUNT 136 K/uL (130-400); RED CELL DISTRIBUTION WIDTH CV 14.4 % (11.5-14.5); WHITE BLOOD COUNT 11.33 K/uL (4.8-10.8)
[2017-11-27 06:46] LABS: CALCIUM 7.8 mg/dl (8.5-10.1); CREATININE 0.9 mg/dl (0.60-1.40); TOTAL PROTEIN 5.4 gm/dl (6.4-8.2)
[2017-11-27] MEDS: FINASTERIDE 5 MG TAB PO SCH (07:46)
[2017-11-27] MEDS: ASPIRIN 81 MG ECTAB PO SCH (07:46)
[2017-11-27] MEDS: CLOPIDOGREL BISULFATE 75 MG TAB PO SCH (07:46)
[2017-11-27] MEDS ORDERED: LORAZEPAM 0.5 MG TAB PO STA (08:09)
[2017-11-27] MEDS ORDERED: PANTOprazole SOD 40 MG TAB PO SCH (09:00)
--- NOTE | 2017-11-27 09:30 | Gastrointestinal Consultation ---
Gastrointestinal Consultation Date of Consultation: Nov 27, 2017 Attending Physician: Dr. Pollock Consulting Physician: Iman Smith PA-C Reason for Consultation: Pancreatitis History of Present Illness Patient is a 87 year old male with a PMH of DM2, GERD, CAD w/ h/o [place], HTN, recurrent UTIs, BPH, chronic systolic CHF, ischemic cardiomyopathy, hyperlipidemia, & pancreatitis who is admitted due to abdominal/chest discomfort and found to have pancreatitis. The patient reports that his symptoms began on 11/26. He reports that he ate breakfast and noticed that over the next several hours he had progressively worsening abdominal pain. He reports that his symptoms were similar to an episode of pancreatitis in 2015 so he decided to present to the ER. He reports no nausea, constipation, vomiting, or diarrhea. After evaluation here, he was noted to have an elevated troponin, currently 0.083. His T Bili is 1.6, and no direct bilirubin is available. His LFTs are within normal limits. His Lipase was initially 7057, but has since decreased to 3510. His WBC count is 11.33. He had an EUS in 2014 for an episode of pancreatitis at that time. That procedure identified gallstones. The patient did not want to proceed with a surgical evaluation at that time. He had a CT scan here that indicated findings consistent with acute pancreatitis. There was moderate inflammation and lfuid centered on the pancreatic tail and body. There was diminished enhancement of the pancreatic body favoring acute pancreatitis. A follow-up CT scan in 1-2 months was recommend to ensure resolution and exclude the unlikely possibility of an underlying mass. He had an ultrasound that was a technically difficult study. An MRCP is pending at present. In 2014, He was also referred for a surgical consult by [facility] for his large hiatal hernia. He did not want to proceed with surgery. He has also had abnormal CT scans of the sigmoid colon (thickening). He underwent a colononoscopy in 2015 that indicated diverticulosis. There were no other abnormalities to correlate to these findings. The patients symptoms are improving. He is on IV fluids. He is NPO. He offers no new complaints. He denies a family history of pancreatic cancer or other GI malignancy. Past Medical/Surgical History Medical Problems: (1) Acute pancreatitis Status: Acute (2) Encounter for removal of sutures Status: Acute (3) Epigastric abdominal pain Status: Acute (4) Fall Status: Acute (5) Lip laceration Status: Acute Past Medical History: DM2, GERD, CAD w/ h/o [place], HTN, recurrent UTIs, BPH, chronic systolic CHF, ischemic cardiomyopathy, hyperlipidemia, & pancreatitis Past Surgical History: tonsillectomy, coronary stents x 2, cataract extraction b/l Family History Diabetes mellitus Heart disease Social History Smoking Status: Former Smoker Alcohol Use: occasionally Marital Status: (3 kids - all live out of town) Housing Status: lives with significant other 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[employer], 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)) Allergies Coded Allergies: Cefuroxime (Verified Allergy, Unknown, 05/04/17) Sulfa Antibiotics (Verified Allergy, Unknown, Unknown, 11/26/17) Current Medications Home Meds and Scripts Medications Dose Route/Sig Max Daily Dose Days Date Category Xanax (Alprazolam) 0.5 Mg Tab 0.5 Mg PO HS PRN 11/26/17 Reported Advil (Ibuprofen) 200 Mg Tab 200 Mg PO TID PRN 11/26/17 Reported Nitrofurantoin Macrocryst (Nitrofurantoin Macrocrystals) 50 Mg Cap 50 Mg PO HS 04/28/17 Reported Sulindac 150 Mg Tab 75 Mg PO BID 04/28/17 Reported Protonix (Pantoprazole Sodium) 20 Mg Tab 20 Mg PO QPM 04/28/17 Reported Simvastatin 40 Mg Tab 40 Mg PO HS 07/08/14 Reported Atenolol 25 Mg Tab 12.5 Mg PO BID 07/08/14 Reported Hytrin (Terazosin HCl) 2 Mg Cap 2 Mg PO HS 06/06/12 Reported Aspir-81 (Aspirin) 81 Mg Tab 1 Tablet QAM 06/06/12 Reported Proscar (Finasteride) 5 Mg Tab 1 Tab PO DAILY 07/31/06 Reported Plavix (Clopidogrel Bisulfate) 75 Mg Tab 1 Tab PO QAM 07/31/06 Reported Review of Systems Constitutional: + fatigue, No fever Eyes: No problem reported Respiratory: No cough, No shortness of breath Cardiac: No chest pain Abdomen: + pain, No nausea, No vomiting, No diarrhea, No constipation, No GI bleeding Musculoskeletal: No joint pain Neuro: No problem reported Psych: No problem reported Endo: No problem reported Skin: No problem reported Physical Exam Date Time Temp Pulse Resp B/P (MAP) Pulse Ox O2 Delivery O2 Flow Rate FiO2 11/27/17 08:00 Room Air 11/27/17 07:49 61 16 113/70 (84) 92 11/27/17 04:32 37.2 60 18 120/65 (83) 91 Room Air 11/27/17 00:21 36.7 70 18 149/73 (98) 92 Room Air 11/27/17 00:00 Room Air 11/26/17 19:25 11/26/17 19:25 36.5 73 18 162/88 92 Room Air 11/26/17 18:55 11/26/17 18:28 86 22 95 Room Air 160/95 11/26/17 17:02 141/109 11/26/17 17:00 71 24 11/26/17 16:02 130/91 11/26/17 16:00 68 27 11/26/17 15:32 72 11/26/17 15:30 81 20 93 11/26/17 15:23 73 20 122/68 93 Room Air 11/26/17 15:23 93 Room Air 11/26/17 15:16 36.5 38 20 163/75 97 Room Air General Appearance: WD/WN, no apparent distress Eyes: normal inspection, PERRL ENT: hearing grossly normal Respiratory/Chest: chest non-tender, lungs clear Cardiovascular: regular rate, rhythm Abdomen: normal bowel sounds, non tender, soft Extremities: non-tender Neurologic/Psych: alert, oriented x 3 Skin: normal color Laboratory Results Last 24 Hours Test 11/26/17 13:40 11/26/17 16:25 11/26/17 20:06 11/27/17 05:13 White Blood Count 10.97 K/uL 11.33 K/uL Red Blood Count 6.15 M/uL 5.68 M/uL Hemoglobin 18.7 g/dL 17.1 g/dL Hematocrit 54.2 % 49.9 % Mean Corpuscular Volume 88.1 fL 87.9 fL Mean Corpuscular Hemoglobin 30.4 pg 30.1 pg Mean Corpuscular Hemoglobin Concent 34.5 g/dl 34.3 g/dl Platelet Count 149 K/uL 136 K/uL Mean Platelet Volume 11.2 fL 11.4 fL Neutrophils (%) (Auto) 84.9 % 85.9 % Lymphocytes (%) (Auto) 8.2 % 5.7 % Monocytes (%) (Auto) 6.3 % 7.9 % Eosinophils (%) (Auto) 0.2 % 0.1 % Basophils (%) (Auto) 0.1 % 0.1 % Neutrophils # (Auto) 9.32 K/uL 9.74 K/uL Lymphocytes # (Auto) 0.90 K/uL 0.65 K/uL Monocytes # (Auto) 0.69 K/uL 0.89 K/uL Eosinophils # (Auto) 0.02 K/uL 0.01 K/uL Basophils # (Auto) 0.01 K/uL 0.01 K/uL RDW Standard Deviation 45.9 fL 46.0 fL RDW Coefficient of Variation 14.4 % 14.4 % Immature Granulocyte % (Auto) 0.3 % 0.3 % Immature Granulocyte # (Auto) 0.03 K/uL 0.03 K/uL Prothrombin Time 10.8 SECONDS Prothromb Time International Ratio 1.0 Activated Partial Thromboplast Time 25.1 SECONDS Partial Thromboplastin Ratio 1.0 Sodium Level 135 mmol/L 137 mmol/L Potassium Level 4.1 mmol/L 4.0 mmol/L Chloride Level 101 mmol/L 104 mmol/L Carbon Dioxide Level 26 mmol/L 26 mmol/L Anion Gap 8.0 mmol/L 7.0 mmol/L Blood Urea Nitrogen 19 mg/dl 16 mg/dl Creatinine 1.16 mg/dl 0.90 mg/dl Estimated GFR () 64.8 88.1 Estimated GFR (Non- 55.9 76.0 BUN/Creatinine Ratio 16.4 17.8 Random Glucose 139 mg/dl 112 mg/dl Calcium Level 8.7 mg/dl 7.8 mg/dl Magnesium Level 2.1 mg/dl Total Bilirubin 1.0 mg/dl 1.6 mg/dl Aspartate Amino Transf (AST/SGOT) 19 U/L 14 U/L Alanine Aminotransferase (ALT/SGPT) 30 U/L 21 U/L Alkaline Phosphatase 50 U/L 37 U/L Troponin I < 0.015 ng/ml 0.061 ng/ml 0.083 ng/ml Total Protein 6.7 gm/dl 5.4 gm/dl Albumin 3.9 gm/dl 3.0 gm/dl Globulin 2.8 gm/dl 2.4 gm/dl Albumin/Globulin Ratio 1.4 1.2 Lipase 7057 U/L 3510 U/L Thyroid Stimulating Hormone (TSH) 1.210 uIu/ml Urine Color YELLOW Urine Appearance CLEAR Urine pH 7.0 Urine Specific [place] 1.013 Urine Protein NEG Urine Glucose (UA) NEG Urine Ketones NEG Urine Occult Blood NEG Urine Nitrite NEG Urine Bilirubin NEG Urine Urobilinogen NEG Urine Leukocyte Esterase TRACE Urine WBC (Auto) 0 /hpf Urine RBC (Auto) 0-4 /hpf Urine Hyaline Casts (Auto) 0 /lpf Urine Epithelial Cells (Auto) 0-5 /lpf Urine Bacteria (Auto) NEG Est Creatinine Clear Calc Drug Dose 58.6 ml/min Impression Patient is a 87 year old male with acute pancreatitis. Plan 1) Await results of MRCP 2) Continue NPO status 3) IV fluids with caution given CHF 4) Protonix 40 mg daily 5) Follow-up CT scan in 1-2 months to ensure resolution and exclude underlying mass Thank you for allowing us to participate in the care of this patient. If you should have any further questions or concerns, do not hesitate to contact us. Agree with BARON Rivas as above Abd: Soft, NT, ND, +BS Stop PO Protonix Start Protonix 40 mg IV BID GI Cocktail on order by Dr. Pollock If no relief from extra dose of Protonix and GI cocktail would pursue cardiology workup further. Continue supportive care
--- NOTE | 2017-11-27 11:24 | Progress Note ---
Progress Note Date of Service Nov 27, 2017. Progress Note ID Consult Dictated #[id number] A/P: 1. Pancreatitis -Continue Imipenem for now, pending MRCP results -Hopefully transition to po levaquin soon -thank you
--- NOTE | 2017-11-27 12:01 | INFECT. DISEASE CONSULTATION ---
DATE OF CONSULTATION: 11/27/2017 HISTORY OF PRESENT ILLNESS: This is an 87-year-old gentleman who was admitted to the hospital yesterday with worsening abdominal pain. He was found on CAT scan to have pancreatitis with a questionable necrosis and surrounding fluid. A gallbladder ultrasound was performed and was unremarkable. An MRCP was done this morning, results are pending. He was placed empirically on imipenem. Infectious diseases was consulted for imipenem approval. He has had no fevers or chills. His lipase was greater than 7000 on admission, but has decreased to 3000 today. His LFTs have been within normal limits. He is being followed by GI as well. On my examination, he denies fever, chills, chest pain, cough, shortness of breath, nausea, vomiting or diarrhea. He is somewhat hungry. His abdominal pain has decreased significantly. He otherwise has no complaints and his remaining review of systems is unremarkable. He is tolerating antibiotics well. PAST MEDICAL HISTORY: Significant for type 2 diabetes, GERD, coronary artery disease with multiple MIs in the past, hypertension, history of pancreatitis in 2014, recurrent urinary tract infections for which he is on suppressive Macrobid, BPH, congestive heart failure, hyperlipidemia. PAST SURGICAL HISTORY: Significant for tonsillectomy, coronary stenting, cataract surgery. FAMILY HISTORY: Noncontributory. SOCIAL HISTORY: Significant for history of tobacco use. He drinks occasionally, but denies any recent heavy alcohol use. He has no drug use. He denies any sick contacts. ALLERGIES: HE IS ALLERGIC TO CEFUROXIME AND SULFA. CURRENT MEDICATIONS: Protonix, aspirin, Plavix, Proscar, heparin, atenolol, Macrodantin, Zocor, Hytrin, imipenem, Zofran, Xanax, morphine. PHYSICAL EXAMINATION: VITAL SIGNS: He is afebrile, pulse 61, respiratory rate 16, blood pressure 113/70, oxygen saturation is 92% on room air. GENERAL: He is awake, alert and oriented x3. He is in no acute distress. HEENT: Mucous membranes are moist. Extraocular muscles are intact. HEART: Regular. LUNGS: Clear. ABDOMEN: Soft, nontender, nondistended. There is no edema bilaterally. SKIN: Without rash. LABORATORY STUDIES: CBC today, white blood cell count of 11.3, hemoglobin 17.1, platelets 136. Chemistry panel: Sodium 137, potassium 4.0, chloride 104, bicarbonate 26, BUN 16, creatinine 0.9, glucose 112, AST is 14, ALT 21. Troponins are mildly positive. TSH is normal. Most recent lipase is 2475. UA is negative. No cultures were obtained. Imaging is as above. MRI is pending. ASSESSMENT AND PLAN: Pancreatitis. He can be covered with imipenem pending MRI results. Hopefully, he can be transitioned to oral antibiotics in the near future. Thank you for this consultation.
--- NOTE | 2017-11-27 12:11 | DIAGNOSTIC IMAGING REPORT ---
MRCP CLINICAL HISTORY: pancreatitis, ?pancreatic ductal dilatation on CT right upper quadrant abdominal pain COMPARISON STUDY: CT scan dated 11/26/2017 FINDINGS: There are multiple bilateral renal cysts. There is a hiatal hernia with intrathoracic stomach. There are trace bilateral pleural effusions. There is peripancreatic edema consistent with the clinical history of acute pancreatitis. There is trace perihepatic and perinephric splenic fluid. There is left perinephric fluid. The common bile duct is of normal caliber. No common bile duct filling defects are visualized. There is no there is minor ectasia of the pancreatic duct at the level of the distal pancreatic body. There is a 9 mm cystic lesion communicating with the pancreatic duct consistent with a side branch IPMN. No gallbladder abnormalities are visualized. IMPRESSION: 1. 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 Minor fusiform dilatation of the pancreatic duct within the distal body 3. Peripancreatic edema consistent with acute pancreatitis 4. No evidence of intra or extrahepatic biliary ductal dilatation. No calculi identified. Electronically signed by: Ari Whitmore M.D. 11/27/2017 12:10 PM Dictated Date/Time: 11/27/2017 12:02 PM
[2017-11-27] MEDS ORDERED: NITROGLYCERIN 2% OINTMENT 30GM TUBE EXT ONE (13:00)
[2017-11-27] MEDS: NITROGLYCERIN 2% OINTMENT 30GM TUBE EXT SCH ×3 (13:12→23:33)
--- NOTE | 2017-11-27 15:02 | Cardiology Consultation ---
Cardiology Consultation Date of Consultation: Nov 27, 2017. Requesting Physician: Dr. Jones Reason for Consultation: Chest pain, abnormal enzymes Pt evaluation today including: conversation w/ patient, physical exam, lab review, review of studies, review of inpatient medication list, conversation w/ attending History of Present Illness This is a very pleasant 87-year-old gentleman who has a history of known coronary artery disease. He presented with chest discomfort September 2004, his troponin was mildly increased at the time but he refused cardiac catheterization. He then presented on October 07, 2004 with an acute anterior myocardial infarction which was initially treated with thrombolytic therapy and subsequent transferred to [place] where he was found to have severe LAD disease and several stents were placed. He then had subacute stent thrombosis October 14, 2004 where he required an intra-aortic balloon pump and emergency transferred to [facility]. His LAD was found to be occluded and he was treated with thrombectomy and angioplasty. Echocardiography at the time showed his left ventricular ejection fraction to be 45-50%. He then had recurrent non-ST segment elevation myocardial infarction July 31, 2006, once again he was transferred to [facility] but had no disease requiring intervention. Since that time he has had no identification of progression of disease, he did have a stress echo in 2008 which is negative for ischemia and his ejection fraction was 50%. He did have anterior wall motion abnormalities. He also developed pancreatitis and was treated June 2014 for that. He did have an echocardiogram performed on July 17, 2017 where his left ventricle was normal in size and his ejection fraction was 30% with moderate mitral regurgitation. It seems that this decline in left ventricular function was felt to be due to measurements related to ventricular bigeminy not a true decline but I do not see documentation of that (that is per the patient). He now presents with abdominal and lower chest discomfort, his initial troponin was negative however subsequent troponins have been slightly elevated although there is not a clear pattern with a slight increase and then a decrease again. The peak troponin was only 0.083. He tells me that the character of the pain has really not changed except that now it is almost completely relieved but had been present continuously since before admission. The intensity has dropped off but the character has not changed. He is very active as an outpatient, he was mowing the lawn, cooking for his broke her arm, walking regularly and exercising regularly and having no anginal symptoms and no heart failure symptoms. Past Medical/Surgical History (1) Diabetes mellitus (2) Myocardial infarction (3) HTN (hypertension) (4) GERD (gastroesophageal reflux disease) Family History Diabetes mellitus Heart disease Social History Smoking Status: Former Smoker History of Alcohol Use: Yes (WINE - OCCASIONAL) Review of Systems Constitutional: No fever, No weight loss, No weakness Respiratory: No cough, No shortness of breath Cardiac: + see HPI, No chest pain Abdomen: + see HPI, + pain, No nausea, No vomiting, No diarrhea, No GI bleeding Male : No urinary frequency, No nocturia more than once/night, No slowing stream, No sexual dysfunction Neurologic: No paralysis, No weakness, No numbness/tingling, No balance problems Heme: No abnormal bleeding/bruising, No clotting problems Endo: No fatigue Skin: No problem reported All Other Systems: Reviewed and Negative Allergies Coded Allergies: Cefuroxime (Verified Allergy, Unknown, 05/04/17) Sulfa Antibiotics (Verified Allergy, Unknown, Unknown, 11/26/17) Medications Current Inpatient Medications Medications (Trade) Dose Ordered Sig/Salima Route Start Time Stop Time Status Last Admin Dose Admin Ioversol (Optiray 320) 100 ml UD PRN IV 11/26/17 15:45 11/30/17 15:44 Heparin Sodium (Porcine) (Heparin Sq 5000 Unit/0.5ml) 5,000 unit Q8 SQ 11/26/17 22:00 12/26/17 21:59 Ondansetron HCl (Zofran Inj) 4 mg Q6H PRN IV 11/26/17 18:30 12/26/17 18:29 Nitroglycerin (Nitrostat Tab) 0.4 mg UD PRN SL 11/26/17 18:30 12/26/17 18:29 Alprazolam (Xanax Tab) 0.5 mg HS PRN PO 11/26/17 18:30 12/26/17 18:29 11/26/17 21:01 0.5 MG Aspirin (Ecotrin Tab) 81 mg QAM PO 11/27/17 09:00 12/27/17 08:59 11/27/17 07:46 81 MG Atenolol (Tenormin Tab) 12.5 mg BID PO 11/26/17 21:00 12/26/17 20:59 11/27/17 07:47 12.5 MG Clopidogrel Bisulfate (plAVix TAB) 75 mg QAM PO 11/27/17 09:00 12/27/17 08:59 11/27/17 07:46 75 MG Finasteride (Proscar Tab) 5 mg DAILY PO 11/27/17 09:00 12/27/17 08:59 11/27/17 07:46 5 MG Nitrofurantoin Macrocrystals (Macrodantin Cap) 50 mg HS PO 11/26/17 21:00 12/26/17 20:59 11/26/17 21:03 50 MG Simvastatin (Zocor Tab) 40 mg HS PO 11/26/17 21:00 12/26/17 20:59 11/26/17 21:03 40 MG Sulindac (Clinoril Tab) 75 mg BID PO 11/26/17 21:00 12/26/17 20:59 Future Hold Terazosin HCl (Hytrin Cap) 2 mg HS PO 11/26/17 21:00 12/26/17 20:59 11/26/17 21:02 2 MG Lactated Ringer's 1,000 ml @ 100 mls/hr Q10H IV 11/26/17 20:00 12/26/17 19:59 11/27/17 04:24 100 MLS/HR Morphine Sulfate (MoRPHine SULFATE INJ) 2 mg Q3H PRN IV 11/26/17 18:30 12/10/17 18:29 11/27/17 13:07 2 MG Pantoprazole Sodium (Protonix Tab) 40 mg DAILYBB PO 11/28/17 06:00 12/26/17 21:59 Nitroglycerin (Nitroglycerin 2% Oint) 0.5 inch Q6H EXT 11/27/17 18:00 12/27/17 17:59 11/27/17 13:12 0.5 INCH Imipenem/ Cilastatin Sodium 500 mg/Dextrose 110 ml @ 110 mls/hr Q6H IV 11/27/17 16:00 12/07/17 15:59 Physical Exam Vital Signs Past 12 Hours Date Time Temp Pulse Resp B/P (MAP) Pulse Ox O2 Delivery O2 Flow Rate FiO2 11/27/17 13:03 36.8 78 18 118/70 (86) 97 8/20/18 11:38 37.0 61 18 103/65 (78) 99 11/27/17 08:00 Room Air 11/27/17 07:49 61 16 113/70 (84) 92 11/27/17 04:32 37.2 60 18 120/65 (83) 91 Room Air Constitutional: General Apperance: heathly-appearing Level of Distress: NAD Psychiatric: Mental Status: active & alert Head: normocephalic Eyes: EOM: EOMI ENMT: normal ENT inspection, hearing grossly normal Neck: supple, no masses Lungs: Respiratory effort: no dyspnea, good air movement Auscultation: breath sounds normal, no wheezing Cardiovascular: Heart Auscultation: RRR, no rubs, no gallops, II/ WSM Peripheral Pulses: Bruits: none appreciated Abdomen: Bowel Sounds: normal Inspection & Palpation: soft, no tenderness, guarding & rebound, no masses Musculoskeletal: normal strength (5/5 throughout) Extremities: no edema Neurologic: Cranial Nerves: grossly intact Sensation: grossly intact Data Laboratory Results: Last 24 Hours Test 11/26/17 16:25 11/26/17 20:06 11/27/17 05:13 11/27/17 10:21 Urine Color YELLOW Urine Appearance CLEAR Urine pH 7.0 Urine Specific [place] 1.013 Urine Protein NEG Urine Glucose (UA) NEG Urine Ketones NEG Urine Occult Blood NEG Urine Nitrite NEG Urine Bilirubin NEG Urine Urobilinogen NEG Urine Leukocyte Esterase TRACE Urine WBC (Auto) 0 /hpf Urine RBC (Auto) 0-4 /hpf Urine Hyaline Casts (Auto) 0 /lpf Urine Epithelial Cells (Auto) 0-5 /lpf Urine Bacteria (Auto) NEG Troponin I 0.061 ng/ml 0.083 ng/ml White Blood Count 11.33 K/uL Red Blood Count 5.68 M/uL Hemoglobin 17.1 g/dL Hematocrit 49.9 % Mean Corpuscular Volume 87.9 fL Mean Corpuscular Hemoglobin 30.1 pg Mean Corpuscular Hemoglobin Concent 34.3 g/dl Platelet Count 136 K/uL Mean Platelet Volume 11.4 fL Neutrophils (%) (Auto) 85.9 % Lymphocytes (%) (Auto) 5.7 % Monocytes (%) (Auto) 7.9 % Eosinophils (%) (Auto) 0.1 % Basophils (%) (Auto) 0.1 % Neutrophils # (Auto) 9.74 K/uL Lymphocytes # (Auto) 0.65 K/uL Monocytes # (Auto) 0.89 K/uL Eosinophils # (Auto) 0.01 K/uL Basophils # (Auto) 0.01 K/uL RDW Standard Deviation 46.0 fL RDW Coefficient of Variation 14.4 % Immature Granulocyte % (Auto) 0.3 % Immature Granulocyte # (Auto) 0.03 K/uL Sodium Level 137 mmol/L Potassium Level 4.0 mmol/L Chloride Level 104 mmol/L Carbon Dioxide Level 26 mmol/L Anion Gap 7.0 mmol/L Blood Urea Nitrogen 16 mg/dl Creatinine 0.90 mg/dl Est Creatinine Clear Calc Drug Dose 58.6 ml/min Estimated GFR () 88.1 Estimated GFR (Non- 76.0 BUN/Creatinine Ratio 17.8 Random Glucose 112 mg/dl Calcium Level 7.8 mg/dl Total Bilirubin 1.6 mg/dl Aspartate Amino Transf (AST/SGOT) 14 U/L Alanine Aminotransferase (ALT/SGPT) 21 U/L Alkaline Phosphatase 37 U/L Total Protein 5.4 gm/dl Albumin 3.0 gm/dl Globulin 2.4 gm/dl Albumin/Globulin Ratio 1.2 Lipase 3510 U/L 2475 U/L Test 11/27/17 13:15 Troponin I 0.047 ng/ml Imaging: Chest x-ray shows a large hiatal hernia EKG: An electrocardiogram on arrival shows sinus rhythm with ventricular bigeminy, the premature ventricular complexes suggest a right ventricular outflow tract origin. Intrinsic complexes show right bundle branch block pattern. A repeat electrocardiogram some hours later shows with frequent premature ventricular beats and no acute changes. Telemetry reviewed: Sinus rhythm with frequent premature ventricular beats Assessment & Plan 1. Abdominal and lower midsternal chest discomfort: I believe this is most compatible with his known pancreatitis, the character of it does not suggest angina although the enzyme rise is little bit worrisome but it is quite low. He has been very active prior to this event including regular exercise and taking care of the house, etc. without anginal symptoms. I suspect therefore this is not anginal. 2. Coronary disease: He has well known coronary disease and he has diabetes mellitus and may have silent ischemia. His left ventricular ejection fraction last measured was also somewhat reduced although that may be due to his frequent ventricular ectopy. At this point I do not think we should evaluate his coronary arteries, I would treat him for his pancreatitis and see if his symptoms resolve as they seem to be in to watch his enzymes and make sure they return to normal. He does not have any electrocardiographic evidence of acute ischemia. I suspect this is demand ischemia. 3. Frequent premature ventricular beats: He has very frequent premature ventricular beats and they look like they are likely a right ventricular outflow tract origin. As such they may respond to beta-blockade, he is on a low dose of atenolol. As an experiment I am going to switch this to metoprolol succinate tomorrow which might be better if he does have some degree of left ventricular dysfunction. 4. Decreased left ventricular ejection fraction: Without reviewing his echocardiogram I cannot be sure that he is not developed some left ventricular dysfunction. He evidently has been told that he had strong beats alternating with weak ones consistent with his frequent PVCs and ventricular bigeminy, this could be true. Even so it might be good to put him on metoprolol succinate and to try to suppress his premature ventricular beat so he does not develop worsening left ventricular dysfunction. We will continue follow along with you. Thank you for allowing me to participate in his care.
[2017-11-27] MEDS: IMIPENEM/CILASTATIN IV 500 MG in D5W 100ML IV SCH ×2 (15:43→20:52)
[2017-11-27] MEDS ORDERED: GI COCKTAIL PO STA (15:58)
[2017-11-27] MEDS ORDERED: METOPROLOL TARTRATE 25 MG TAB PO STA (16:22)
[2017-11-27] MEDS ORDERED: ALUMINUM/MAGNESIUM SUSP 18 ML, LIDOCAINE HCL 2% VISCOUS SOLN 6 ML, BARCODE IDENTIFIER 1 EA PO SCH ×2 (16:30)
[2017-11-27] MEDS ORDERED: PANTOprazole INJ 40 MG in SYRINGE 0 ML IV SCH (16:45)
[2017-11-27] MEDS ORDERED: NURSING VERBAL MED ORDER ONE (16:45)
--- NOTE | 2017-11-27 18:56 | Progress Note ---
Subjective Date of Service: Nov 27, 2017. Subjective Pt evaluation today including: conversation w/ patient, conversation w/ family (, SON, AND [id number] AT BEDSIDE), physical exam, chart review, lab review, review of studies (MRCP, gall bladder u/s), conversation w/ apprenticeship consultant ( GI, cardiology), review of inpatient medication list Pain: abd pain improved; having intermittent mild chest discomforts PO Intake: npo Voiding: no voiding problems having frequent burping, belching, and hiccups this is associated with mild chest discomfort no nausea/emesis also had some mild throat discomfort earlier this am associated with his chest discomfort no dyspnea no orthopnea tele with bigeminy and frequent PVCs Problem List Medical Problems: (1) Acute pancreatitis Status: Acute (2) Encounter for removal of sutures Status: Acute (3) Epigastric abdominal pain Status: Acute (4) Fall Status: Acute (5) Lip laceration Status: Acute Review of Systems Constitutional: No fever, No chills Respiratory: No cough, No sputum, No wheezing, No shortness of breath, No dyspnea on exertion, No dyspnea at rest Cardiac: + see HPI, + chest pain, No orthopnea, No PND, No edema, No palpitations Abdomen: + pain, No nausea, No vomiting, No diarrhea Objective Vital Signs Date Time Temp Pulse Resp B/P (MAP) Pulse Ox O2 Delivery O2 Flow Rate FiO2 11/27/17 17:09 60 12 126/65 (85) 11/27/17 15:32 37.5 74 18 123/72 (89) 91 Room Air 11/27/17 13:03 36.8 78 18 118/70 (86) 97 11/27/17 11:38 37.0 61 18 103/65 (78) 99 11/27/17 08:00 Room Air 11/27/17 07:49 61 16 113/70 (84) 92 11/27/17 04:32 37.2 60 18 120/65 (83) 91 Room Air 11/27/17 00:21 36.7 70 18 149/73 (98) 92 Room Air 11/27/17 00:00 Room Air 11/26/17 19:25 11/26/17 19:25 36.5 73 18 162/88 92 Room Air 11/26/17 18:55 Physical Exam General Appearance: no apparent distress, + pertinent finding (looks very tired , falling asleep easily during the visits (saw patient 3 times today)) ENT: pharynx normal Neck: no JVD Respiratory/Chest: lungs clear, no respiratory distress, no accessory muscle use Cardiovascular: regular rate, rhythm, no gallop, no murmur, + extra beats Abdomen: normal bowel sounds, soft, no organomegaly, + tenderness (very minimal - epigastric region) Extremities: no pedal edema Neurologic/Psychiatric: alert, + pertinent finding (sleepy today but follows commands and answers questions ) Skin: no rash Laboratory Results Last 24 Hours Test 11/26/17 20:06 11/27/17 05:13 11/27/17 10:21 11/27/17 13:15 Troponin I 0.061 ng/ml 0.083 ng/ml 0.047 ng/ml White Blood Count 11.33 K/uL Red Blood Count 5.68 M/uL Hemoglobin 17.1 g/dL Hematocrit 49.9 % Mean Corpuscular Volume 87.9 fL Mean Corpuscular Hemoglobin 30.1 pg Mean Corpuscular Hemoglobin Concent 34.3 g/dl Platelet Count 136 K/uL Mean Platelet Volume 11.4 fL Neutrophils (%) (Auto) 85.9 % Lymphocytes (%) (Auto) 5.7 % Monocytes (%) (Auto) 7.9 % Eosinophils (%) (Auto) 0.1 % Basophils (%) (Auto) 0.1 % Neutrophils # (Auto) 9.74 K/uL Lymphocytes # (Auto) 0.65 K/uL Monocytes # (Auto) 0.89 K/uL Eosinophils # (Auto) 0.01 K/uL Basophils # (Auto) 0.01 K/uL RDW Standard Deviation 46.0 fL RDW Coefficient of Variation 14.4 % Immature Granulocyte % (Auto) 0.3 % Immature Granulocyte # (Auto) 0.03 K/uL Sodium Level 137 mmol/L Potassium Level 4.0 mmol/L Chloride Level 104 mmol/L Carbon Dioxide Level 26 mmol/L Anion Gap 7.0 mmol/L Blood Urea Nitrogen 16 mg/dl Creatinine 0.90 mg/dl Est Creatinine Clear Calc Drug Dose 58.6 ml/min Estimated GFR () 88.1 Estimated GFR (Non- 76.0 BUN/Creatinine Ratio 17.8 Random Glucose 112 mg/dl Calcium Level 7.8 mg/dl Total Bilirubin 1.6 mg/dl Aspartate Amino Transf (AST/SGOT) 14 U/L Alanine Aminotransferase (ALT/SGPT) 21 U/L Alkaline Phosphatase 37 U/L Total Protein 5.4 gm/dl Albumin 3.0 gm/dl Globulin 2.4 gm/dl Albumin/Globulin Ratio 1.2 Lipase 3510 U/L 2475 U/L Assessment and Plan 87yo male with history of CAD s/p multiple MIs with last stent in 2004, chronic systolic CHF 2nd to ischemic cardiomyopathy, and idiopathic acute pancreatitis in 2014 who presented with another episode of acute pancreatitis. 1. acute pancreatitis - etiology uncertain. Does not drink etoh, no gallstones , calcium is normal, triglycerides normal. Minimal chance (1%) risk that sulindac caused the episode. NO recent viral illnesses. NO trauma to the abdomen. MRCP without definitive cause (has 1cm IPMN - side branch - theoretically could cause pancreatitis but unlikely). Continue LR hydration but lower rate to 80cc/hr due to known systolic CHF. Continue NPO status. Continue imipenem given ?necrosis on CT scan. Defer diet advancement and other w/u (EUS, etc) to GI. Repeat LFTs and lipase in am. 2. chest discomforts, burping, neck discomfort, hiccups - uncertain if this is upper GI in origin (reflux) or cardiac. He has not gained relief with use of protonix orally, GI cocktail, morphine. Dr. Rojas has increased the protonix to BID dosing. Has mild troponin elevation which has already peaked and started to come down and EKGs do not show ischemic changes. Plan to repeat the troponin again this evening about 1900. If he continues to have these complaints, if there is a troponin elevation, or his EKG changes then start heparin infusion. I discussed his case thoroughly with Dr. Hanley from cardiology. I appreciate his consultation and recommendations. 3. CAD with prior MIs - continue his aspirin, BB, statin. Dr. Hanley to change his beta maite due to the frequent PVCs/bigeminy. See #2 above re: additional discussion about troponins and symptoms. 4. chronic systolic CHF - EF was 30% in July 2017. Thus far remains compensated. Lower fluid rate, however, to 80cc/hr. 5. polycythemia - he has had top-normal hemoglobins for 1-2 years but it is inching upwards more recently. His RBC count is also high. After hydration his H/H have improved. Could he have early PCV? Will need f/u after discharge. CBC in am for stability. 6. DVT proph - heparin 5000 TID. 7. GERD - PPI twice daily. Could consider carafate. 8. BPH - alpha maite. 9. recurrent UTIs - hold sulindac (he reports using this chronically for UTI prevention). Continue macrobid. 10. FEN - NPO, LR at 80cc/hr, BMP in am. 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 [id number] there is strong family h/o pancreatic ca. The significance of the dilated pancreatic duct is uncertain. family updated extensively at bedside total time today about 75 minutes including multiple visits to the bedside, speaking with multiple consultants, reviewing imaging and EKGs, updating family , etc Continued [facility] stay due to: inadequate po fluid intake, multiple IV medications needed Discharge planning: uncertain
[2017-11-27] MEDS ORDERED: ACETAMINOPHEN 325 MG TAB PO PRN (20:15)
[2017-11-27] MEDS: ALPRAZOLAM 0.5 MG TAB PO PRN (20:45)
[2017-11-27] MEDS: PANTOprazole INJ 40 MG in SYRINGE 0 ML IV SCH (20:45)
[2017-11-27] MEDS: NITROFURANTOIN MACROCRYSTALS 50 MG CAP PO SCH (20:46)
[2017-11-27] MEDS: SIMVASTATIN 40 MG TAB PO SCH (20:47)
[2017-11-28 02:59] VITALS: BP 108/57; PULSE 57; TEMP 36.8; O2SAT 92
[2017-11-28] MEDS: IMIPENEM/CILASTATIN IV 500 MG in D5W 100ML IV SCH ×3 (03:07→15:26)
[2017-11-28] MEDS: LACTATED RINGER'S 1000ML 1,000 ML IV SCH ×2 (03:08→15:27)
[2017-11-28] MEDS: NITROGLYCERIN 2% OINTMENT 30GM TUBE EXT SCH ×4 (05:56→23:52)
[2017-11-28] MEDS: HEPARIN SOD 5000 UNIT/0.5 ML CARP SQ SCH ×3 (05:56→20:22)
[2017-11-28] MEDS ORDERED: PANTOprazole SOD 40 MG TAB PO SCH (06:00)
[2017-11-28 06:22] LABS: HEMATOCRIT 46.9 % (42-52); MEAN CORPUSCULAR HGB CONC 34.1 g/dl (32-36); MEAN PLATELET VOLUME 11.3 fL (7.4-10.4); PLATELET COUNT 118 K/uL (130-400); RED CELL DISTRIBUTION WIDTH CV 14.4 % (11.5-14.5); RED CELL DISTRIBUTION WIDTH SD 46.5 fL (36.4-46.3); WHITE BLOOD COUNT 11.54 K/uL (4.8-10.8)
[2017-11-28 06:55] LABS: ALBUMIN 2.8 gm/dl (3.4-5.0); CREATININE 0.99 mg/dl (0.60-1.40); POTASSIUM 3.8 mmol/L (3.5-5.1); TOTAL PROTEIN 5.3 gm/dl (6.4-8.2)
[2017-11-28 07:03] VITALS: BP 120/65; PULSE 63; TEMP 36.7; O2SAT 92
[2017-11-28] MEDS: PANTOprazole INJ 40 MG in SYRINGE 0 ML IV SCH ×2 (08:16→20:14)
[2017-11-28] MEDS: CLOPIDOGREL BISULFATE 75 MG TAB PO SCH (08:17)
[2017-11-28] MEDS: METOPROLOL SUCC 50MG EXT REL TAB PO SCH (08:17)
[2017-11-28] MEDS: ASPIRIN 81 MG ECTAB PO SCH (08:17)
[2017-11-28] MEDS: FINASTERIDE 5 MG TAB PO SCH (08:18)
--- NOTE | 2017-11-28 09:37 | Gastroenterology Progress Note ---
Progress Note Date of Service: Nov 28, 2017 Subjective Pt evaluation today including: conversation w/ patient, physical exam, lab review, review of studies, conversation w/ sales operations consultant Patient is an 87 yo male with pancreatitis. He reports resolution of his abdominal/chest pain at the time of my visit. He reports a small amount of heartburn. He denies nausea or vomiting. He reports that he is eager to eat. He denies any further symptoms since yesterday. He continues on IV Protonix 40 mg BID. He has remained NPO. His Lipase has trended down to 503. His T bili is 1.6. Troponin carol to 0.061 this AM. HIS MRCP indicated a side-branch IPMN, but did not indicate any acute findings that would explain his pancreatitis. Cardiology is following the patient as well. Review of Systems Constitutional: No fever, No chills Eyes: No problem reported Respiratory: No cough Cardiac: No chest pain Abdomen: + problem reported (reflux), No pain, No nausea, No vomiting, No diarrhea, No constipation, No GI bleeding Musculoskeletal: No joint pain Psych: No problem reported Skin: No problem reported Medications Current Inpatient Medications Medications (Trade) Dose Ordered Sig/Salima Route Start Time Stop Time Status Last Admin Dose Admin Ioversol (Optiray 320) 100 ml UD PRN IV 11/26/17 15:45 11/30/17 15:44 Heparin Sodium (Porcine) (Heparin Sq 5000 Unit/0.5ml) 5,000 unit Q8 SQ 11/26/17 22:00 12/26/17 21:59 Ondansetron HCl (Zofran Inj) 4 mg Q6H PRN IV 11/26/17 18:30 12/26/17 18:29 Nitroglycerin (Nitrostat Tab) 0.4 mg UD PRN SL 11/26/17 18:30 12/26/17 18:29 Alprazolam (Xanax Tab) 0.5 mg HS PRN PO 11/26/17 18:30 12/26/17 18:29 11/27/17 20:45 0.5 MG Aspirin (Ecotrin Tab) 81 mg QAM PO 11/27/17 09:00 12/27/17 08:59 11/28/17 08:17 81 MG Clopidogrel Bisulfate (plAVix TAB) 75 mg QAM PO 11/27/17 09:00 12/27/17 08:59 11/28/17 08:17 75 MG Finasteride (Proscar Tab) 5 mg DAILY PO 11/27/17 09:00 12/27/17 08:59 11/28/17 08:18 5 MG Nitrofurantoin Macrocrystals (Macrodantin Cap) 50 mg HS PO 11/26/17 21:00 12/26/17 20:59 11/27/17 20:46 50 MG Simvastatin (Zocor Tab) 40 mg HS PO 11/26/17 21:00 12/26/17 20:59 11/27/17 20:47 40 MG Sulindac (Clinoril Tab) 75 mg BID PO 11/26/17 21:00 12/26/17 20:59 Future Hold Terazosin HCl (Hytrin Cap) 2 mg HS PO 11/26/17 21:00 12/26/17 20:59 11/27/17 20:47 2 MG Lactated Ringer's 1,000 ml @ 80 mls/hr [id number] IV 11/26/17 20:00 12/26/17 19:59 11/28/17 03:08 80 MLS/HR Morphine Sulfate (MoRPHine SULFATE INJ) 2 mg Q3H PRN IV 11/26/17 18:30 12/10/17 18:29 11/27/17 16:08 2 MG Nitroglycerin (Nitroglycerin 2% Oint) 0.5 inch Q6H EXT 11/27/17 18:00 12/27/17 17:59 11/27/17 17:10 0.5 INCH Imipenem/ Cilastatin Sodium 500 mg/Dextrose 110 ml @ 110 mls/hr Q6H IV 11/27/17 16:00 12/07/17 15:59 11/28/17 03:07 110 MLS/HR Metoprolol Succinate (Toprol Xl Tab) 50 mg QAM PO 11/28/17 09:00 12/28/17 08:59 11/28/17 08:17 50 MG Pantoprazole Sodium 40 mg/ Syringe 10 ml @ 5 mls/min DAILY@ IV 11/27/17 21:00 12/27/17 20:59 11/28/17 08:16 5 MLS/MIN Acetaminophen (Tylenol Tab) 650 mg Q4H PRN PO 11/27/17 20:15 12/27/17 20:14 11/27/17 20:46 650 MG Objective Vital Signs Date Time Temp Pulse Resp B/P (MAP) Pulse Ox O2 Delivery O2 Flow Rate FiO2 11/28/17 08:00 Room Air 11/28/17 07:03 36.7 63 18 120/65 (83) 92 Room Air 11/28/17 02:59 36.8 57 15 108/57 (74) 92 Room Air 11/27/17 23:10 36.6 56 17 97/58 (71) 92 Room Air 11/27/17 21:49 36.8 11/27/17 20:00 Room Air 11/27/17 19:49 37.9 61 18 114/71 (85) 91 Room Air 11/27/17 17:09 60 12 126/65 (85) 11/27/17 15:32 37.5 74 18 123/72 (89) 91 Room Air 11/27/17 13:03 36.8 78 18 118/70 (86) 97 11/27/17 11:38 37.0 61 18 103/65 (78) 99 Physical Exam General Appearance: WD/WN Eyes: normal inspection, PERRL Respiratory/Chest: lungs clear, normal breath sounds Cardiovascular: regular rate, rhythm Abdomen: normal bowel sounds, non tender, soft Extremities: non-tender Neurologic/Psych: alert, + pertinent finding (easily confused) Skin: normal color Laboratory Results Last 24 Hours Test 11/27/17 10:21 11/27/17 13:15 11/27/17 19:03 11/28/17 05:12 Lipase 2475 U/L 503 U/L Troponin I 0.047 ng/ml 0.061 ng/ml White Blood Count 11.54 K/uL Red Blood Count 5.33 M/uL Hemoglobin 16.0 g/dL Hematocrit 46.9 % Mean Corpuscular Volume 88.0 fL Mean Corpuscular Hemoglobin 30.0 pg Mean Corpuscular Hemoglobin Concent 34.1 g/dl RDW Standard Deviation 46.5 fL RDW Coefficient of Variation 14.4 % Platelet Count 118 K/uL Mean Platelet Volume 11.3 fL Sodium Level 136 mmol/L Potassium Level 3.8 mmol/L Chloride Level 103 mmol/L Carbon Dioxide Level 25 mmol/L Anion Gap 7.0 mmol/L Blood Urea Nitrogen 17 mg/dl Creatinine 0.99 mg/dl Est Creatinine Clear Calc Drug Dose 51.2 ml/min Estimated GFR () 78.5 Estimated GFR (Non- 67.7 BUN/Creatinine Ratio 17.3 Random Glucose 80 mg/dl Calcium Level 8.0 mg/dl Magnesium Level 2.0 mg/dl Total Bilirubin 1.6 mg/dl Aspartate Amino Transf (AST/SGOT) 20 U/L Alanine Aminotransferase (ALT/SGPT) 16 U/L Alkaline Phosphatase 36 U/L Total Protein 5.3 gm/dl Albumin 2.8 gm/dl Globulin 2.5 gm/dl Albumin/Globulin Ratio 1.1 Assessment and Plan Patient is an 87 yo male with recurrent pancreatitis. His Lipase has improved to 503. His T Bili is 1.6. His MRCP from yesterday indicated a side branch IPMN , but did not indicate any particular reason for acute pancreatitis. His last episode was in 2014. At that time, he underwent an EUS per Dr. Scales. Findings indicated 2 gallstones within the gallbladder. An evaluation with a surgeon was recommended as the patient was noted to have an incredibly large hiatal hernia with intrathoracic stomach. Patient declined general surgery referral at that time as he was not interested in invasive procedures. He is presently NPO, but is eager to advance to clear liquids so will do that this morning. He reports some heartburn, but resolution of abdominal pain. Will continue IV Protonix 40 mg BID & add Carafate 1 gm four times daily. As an outpatient, plan to order IgG subclasses to assess for autoimmune pancreatitis. Will continue to follow his lipase & LFTs. Cardiology continues to follow in light of his troponin elevation. The case with discussed with Dr. Pollock with the hospitalist team. Thank you for allowing us to participate in the care of this patient. If you should have any further questions or concerns, do not hesitate to contact us. Agree with BARON Rivas as above Abd: Soft, NT, ND, +BS Continue supportive care
[2017-11-28 11:41] VITALS: BP 118/76; PULSE 74; TEMP 36.8; O2SAT 95
[2017-11-28] MEDS: SUCRALFATE 1 GM/10 ML UDC PO SCH ×3 (12:07→20:14)
--- NOTE | 2017-11-28 13:20 | Progress Note ---
Subjective Date of Service: Nov 28, 2017. Subjective pt continues to improve, advancing diet to clears. MRCP negative. afebrile this am. tolerating abx. lipase improved to 503. wbc mildly elevated 11. Problem List Medical Problems: (1) Acute pancreatitis Status: Acute (2) Encounter for removal of sutures Status: Acute (3) Epigastric abdominal pain Status: Acute (4) Fall Status: Acute (5) Lip laceration Status: Acute Objective Vital Signs Date Time Temp Pulse Resp B/P (MAP) Pulse Ox O2 Delivery O2 Flow Rate FiO2 11/28/17 11:41 36.8 74 18 118/76 (90) 95 11/28/17 08:00 Room Air 11/28/17 07:03 36.7 63 18 120/65 (83) 92 Room Air 11/28/17 02:59 36.8 57 15 108/57 (74) 92 Room Air 11/27/17 23:10 36.6 56 17 97/58 (71) 92 Room Air 11/27/17 21:49 36.8 11/27/17 20:00 Room Air 11/27/17 19:49 37.9 61 18 114/71 (85) 91 Room Air 11/27/17 17:09 60 12 126/65 (85) 11/27/17 15:32 37.5 74 18 123/72 (89) 91 Room Air Laboratory Results Last 24 Hours Test 11/27/17 19:03 11/28/17 05:12 Troponin I 0.061 ng/ml White Blood Count 11.54 K/uL Red Blood Count 5.33 M/uL Hemoglobin 16.0 g/dL Hematocrit 46.9 % Mean Corpuscular Volume 88.0 fL Mean Corpuscular Hemoglobin 30.0 pg Mean Corpuscular Hemoglobin Concent 34.1 g/dl RDW Standard Deviation 46.5 fL RDW Coefficient of Variation 14.4 % Platelet Count 118 K/uL Mean Platelet Volume 11.3 fL Sodium Level 136 mmol/L Potassium Level 3.8 mmol/L Chloride Level 103 mmol/L Carbon Dioxide Level 25 mmol/L Anion Gap 7.0 mmol/L Blood Urea Nitrogen 17 mg/dl Creatinine 0.99 mg/dl Est Creatinine Clear Calc Drug Dose 51.2 ml/min Estimated GFR () 78.5 Estimated GFR (Non- 67.7 BUN/Creatinine Ratio 17.3 Random Glucose 80 mg/dl Calcium Level 8.0 mg/dl Magnesium Level 2.0 mg/dl Total Bilirubin 1.6 mg/dl Aspartate Amino Transf (AST/SGOT) 20 U/L Alanine Aminotransferase (ALT/SGPT) 16 U/L Alkaline Phosphatase 36 U/L Total Protein 5.3 gm/dl Albumin 2.8 gm/dl Globulin 2.5 gm/dl Albumin/Globulin Ratio 1.1 Lipase 503 U/L Assessment and Plan (1) Pancreatitis Assessment & Plan: can transition to po levaquin to complete 5 days but doubt abx doing much to contribute to recovery. No further ID suggestions at this time. Continued [facility] stay due to: inadequate po fluid intake, multiple IV medications needed Discharge planning: uncertain
[2017-11-28 15:21] VITALS: BP 130/86; PULSE 67; TEMP 36.5; O2SAT 94
[2017-11-28 19:20] VITALS: BP 125/75; PULSE 63; TEMP 37.3; O2SAT 93
--- NOTE | 2017-11-28 19:54 | Progress Note ---
Subjective Date of Service: Nov 28, 2017. Subjective Pt evaluation today including: conversation w/ patient, conversation w/ family (son, daughter in law, ), physical exam, chart review, lab review, conversation w/ performance management consultant (GI, PT), review of inpatient medication list Pain: minimal abd pain PO Intake: npo Voiding: no voiding problems tele with PVCs and occasional bigem he feels better today GERD symptoms/burning in mouth & throat improved GI cocktail helped yesterday no substernal cp no orthopnea, gill or dyspnea at rest no emesis or nausea +flatus feels "weak" Problem List Medical Problems: (1) Acute pancreatitis Status: Acute (2) Encounter for removal of sutures Status: Acute (3) Epigastric abdominal pain Status: Acute (4) Fall Status: Acute (5) Lip laceration Status: Acute Review of Systems Constitutional: No fever, No chills Respiratory: No shortness of breath, No dyspnea on exertion Cardiac: No chest pain, No orthopnea Abdomen: + see HPI, + pain, No nausea, No vomiting, No diarrhea, No constipation, No GI bleeding Objective Vital Signs Date Time Temp Pulse Resp B/P (MAP) Pulse Ox O2 Delivery O2 Flow Rate FiO2 11/28/17 19:20 37.3 63 18 125/75 (92) 93 Room Air 11/28/17 15:21 36.5 67 18 130/86 (101) 94 Room Air 11/28/17 11:41 36.8 74 18 118/76 (90) 95 11/28/17 08:00 Room Air 11/28/17 07:03 36.7 63 18 120/65 (83) 92 Room Air 11/28/17 02:59 36.8 57 15 108/57 (74) 92 Room Air 11/27/17 23:10 36.6 56 17 97/58 (71) 92 Room Air 11/27/17 21:49 36.8 11/27/17 20:00 Room Air 11/27/17 19:49 37.9 61 18 114/71 (85) 91 Room Air Physical Exam General Appearance: no apparent distress, + pertinent finding (looks better today) ENT: pharynx normal Neck: no JVD Respiratory/Chest: lungs clear, no respiratory distress, no accessory muscle use Cardiovascular: regular rate, rhythm, no gallop, no murmur Abdomen: normal bowel sounds, non tender, soft, no organomegaly Extremities: no pedal edema Neurologic/Psychiatric: alert Skin: no rash Laboratory Results Last 24 Hours Test 11/28/17 05:12 White Blood Count 11.54 K/uL Red Blood Count 5.33 M/uL Hemoglobin 16.0 g/dL Hematocrit 46.9 % Mean Corpuscular Volume 88.0 fL Mean Corpuscular Hemoglobin 30.0 pg Mean Corpuscular Hemoglobin Concent 34.1 g/dl RDW Standard Deviation 46.5 fL RDW Coefficient of Variation 14.4 % Platelet Count 118 K/uL Mean Platelet Volume 11.3 fL Sodium Level 136 mmol/L Potassium Level 3.8 mmol/L Chloride Level 103 mmol/L Carbon Dioxide Level 25 mmol/L Anion Gap 7.0 mmol/L Blood Urea Nitrogen 17 mg/dl Creatinine 0.99 mg/dl Est Creatinine Clear Calc Drug Dose 51.2 ml/min Estimated GFR () 78.5 Estimated GFR (Non- 67.7 BUN/Creatinine Ratio 17.3 Random Glucose 80 mg/dl Calcium Level 8.0 mg/dl Magnesium Level 2.0 mg/dl Total Bilirubin 1.6 mg/dl Aspartate Amino Transf (AST/SGOT) 20 U/L Alanine Aminotransferase (ALT/SGPT) 16 U/L Alkaline Phosphatase 36 U/L Total Protein 5.3 gm/dl Albumin 2.8 gm/dl Globulin 2.5 gm/dl Albumin/Globulin Ratio 1.1 Lipase 503 U/L Assessment and Plan 87yo male with history of CAD s/p multiple MIs with last stent in 2004, chronic systolic CHF 2nd to ischemic cardiomyopathy, and idiopathic acute pancreatitis in 2014 who presented with another episode of acute pancreatitis. 1. acute pancreatitis - improving clinically & biochemically. Start clears. Given his low EF/CHF will lower his fluid rate to 50cc/hr. Lipase/LFTs in am. The patient DID have endoscopic u/s by Dr. Sandra Scales in 2015. This showed gallstones in the gallbladder. Cholecystectomy was recommended at that time but patient declined. It is conceivable this episode was due to a passed gallstone. Cont supportive care. Appreciate ID consultation; stop imipenem, change to levaquin x 5 days. Necrosis unlikely. Minimal t. bili increase - will repeat in am. 2. chest discomforts, burping, neck discomfort, hiccups - improved with increased dose of PPI but having occasional symptoms still. Adding carafate. Cardiac cause felt to be less likely at this point. Pt DOES have very large hiatal hernia which lends itself to severe GERD. 3. CAD with prior MIs - continue his aspirin, BB, statin. 4. chronic systolic CHF - EF was 30% in July 2017. Thus far remains compensated. Lower fluid rate, however, to 50cc/hr. 5. polycythemia - he has had top-normal hemoglobins for 1-2 years but it is inching upwards more recently. His RBC count is also high. After hydration his H/H have improved. Could he have early PCV? Will need f/u after discharge. CBC in am for stability. 6. DVT proph - heparin 5000 TID. 7. GERD - PPI twice daily. Carafate. 8. BPH - alpha maite. 9. recurrent UTIs - hold sulindac (he reports using this chronically for UTI prevention). Continue macrobid. 10. FEN - NPO, LR at 50cc/hr, BMP in am. 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 [id number] there is strong family h/o pancreatic ca. The significance of the dilated pancreatic duct is uncertain. family updated extensively at bedside await PT, OT mariajose Continued [facility] stay due to: inadequate po fluid intake, multiple IV medications needed Discharge planning: uncertain
[2017-11-28] MEDS: NITROFURANTOIN MACROCRYSTALS 50 MG CAP PO SCH (20:15)
[2017-11-28] MEDS: SIMVASTATIN 40 MG TAB PO SCH (20:16)
[2017-11-28] MEDS: LEVOFLOXACIN 500 MG TAB PO SCH (20:19)
[2017-11-28] MEDS: ALPRAZOLAM 0.5 MG TAB PO PRN (20:22)
[2017-11-28 23:42] VITALS: BP 121/75; PULSE 64; TEMP 36.5; O2SAT 94
[2017-11-29 03:34] VITALS: BP 112/63; PULSE 53; TEMP 36.6; O2SAT 93
[2017-11-29] MEDS: MoRPHine SULFATE 2 MG/ML CARP IV PRN (04:15)
[2017-11-29] MEDS: HEPARIN SOD 5000 UNIT/0.5 ML CARP SQ SCH ×2 (05:38→14:00)
[2017-11-29] MEDS: NITROGLYCERIN 2% OINTMENT 30GM TUBE EXT SCH ×2 (05:38→12:00)
[2017-11-29 06:27] LABS: BASO % 0.1 %; BASO ABS # 0.01 K/uL (0-0.2); EOS % 0.7 %; EOS ABS # 0.07 K/uL (0-0.5); HEMATOCRIT 45.5 % (42-52); HEMOGLOBIN 15.5 g/dL (14.0-18.0); IG# 0.03 K/uL (0.00-0.02); LYMPH % 8.9 %; LYMPH ABS # 0.95 K/uL (1.2-3.4); MEAN CORPUSCULAR HEMOGLOBIN 29.6 pg (25-34); MEAN CORPUSCULAR HGB CONC 34.1 g/dl (32-36); MEAN PLATELET VOLUME 10.9 fL (7.4-10.4); MONO % 8.9 %; MONO ABS # 0.95 K/uL (0.11-0.59); NEUT % 81.1 %; NEUT ABS # 8.71 K/uL (1.4-6.5); PLATELET COUNT 116 K/uL (130-400); RED CELL DISTRIBUTION WIDTH CV 14.3 % (11.5-14.5); RED CELL DISTRIBUTION WIDTH SD 45.9 fL (36.4-46.3); WHITE BLOOD COUNT 10.72 K/uL (4.8-10.8)
[2017-11-29 06:44] VITALS: BP 116/68; PULSE 62; TEMP 36.4; O2SAT 94
[2017-11-29 07:02] LABS: ALBUMIN 2.6 gm/dl (3.4-5.0); CALCIUM 7.9 mg/dl (8.5-10.1); CREATININE 0.91 mg/dl (0.60-1.40); POTASSIUM 3.7 mmol/L (3.5-5.1); TOTAL PROTEIN 5.4 gm/dl (6.4-8.2)
[2017-11-29] MEDS: CLOPIDOGREL BISULFATE 75 MG TAB PO SCH (07:58)
[2017-11-29] MEDS: METOPROLOL SUCC 50MG EXT REL TAB PO SCH (07:58)
[2017-11-29] MEDS: SUCRALFATE 1 GM/10 ML UDC PO SCH ×2 (07:58→13:35)
[2017-11-29] MEDS: PANTOprazole INJ 40 MG in SYRINGE 0 ML IV SCH (07:58)
[2017-11-29] MEDS: FINASTERIDE 5 MG TAB PO SCH (07:58)
[2017-11-29] MEDS: ASPIRIN 81 MG ECTAB PO SCH (07:58)
[2017-11-29 12:12] VITALS: BP 106/64; PULSE 68; TEMP 36.1; O2SAT 94
--- NOTE | 2017-11-29 13:01 | Gastroenterology Progress Note ---
Progress Note Date of Service: Nov 29, 2017 Subjective Pt evaluation today including: conversation w/ patient, conversation w/ family , physical exam, lab review, review of studies Patient is an 87 yo male with pancreatitis. He reports resolution of his heartburn & abdominal pain. He is eager to go home. He denies further complaints. His Lipase has normalized to 209. His Total Bilirubin improved to 1.1. He continues on antibiotics per ID recommendations. Review of Systems Constitutional: No fever, No chills Eyes: No problem reported Respiratory: No cough, No shortness of breath Cardiac: No chest pain Abdomen: No pain, No nausea, No vomiting, No diarrhea, No constipation, No GI bleeding Psych: No problem reported Skin: No problem reported Medications Current Inpatient Medications Medications (Trade) Dose Ordered Sig/Salima Route Start Time Stop Time Status Last Admin Dose Admin Ioversol (Optiray 320) 100 ml UD PRN IV 11/26/17 15:45 11/30/17 15:44 Heparin Sodium (Porcine) (Heparin Sq 5000 Unit/0.5ml) 5,000 unit Q8 SQ 11/26/17 22:00 12/26/17 21:59 Ondansetron HCl (Zofran Inj) 4 mg Q6H PRN IV 11/26/17 18:30 12/26/17 18:29 Nitroglycerin (Nitrostat Tab) 0.4 mg UD PRN SL 11/26/17 18:30 12/26/17 18:29 Alprazolam (Xanax Tab) 0.5 mg HS PRN PO 11/26/17 18:30 12/26/17 18:29 11/28/17 20:22 0.5 MG Aspirin (Ecotrin Tab) 81 mg QAM PO 11/27/17 09:00 12/27/17 08:59 11/29/17 07:58 81 MG Clopidogrel Bisulfate (plAVix TAB) 75 mg QAM PO 11/27/17 09:00 12/27/17 08:59 11/29/17 07:58 75 MG Finasteride (Proscar Tab) 5 mg DAILY PO 11/27/17 09:00 12/27/17 08:59 11/29/17 07:58 5 MG Nitrofurantoin Macrocrystals (Macrodantin Cap) 50 mg HS PO 11/26/17 21:00 12/26/17 20:59 11/28/17 20:15 50 MG Simvastatin (Zocor Tab) 40 mg HS PO 11/26/17 21:00 12/26/17 20:59 11/28/17 20:16 40 MG Sulindac (Clinoril Tab) 75 mg BID PO 11/26/17 21:00 12/26/17 20:59 Future Hold Terazosin HCl (Hytrin Cap) 2 mg HS PO 11/26/17 21:00 12/26/17 20:59 11/28/17 20:16 2 MG Morphine Sulfate (MoRPHine SULFATE INJ) 2 mg Q3H PRN IV 11/26/17 18:30 12/10/17 18:29 11/29/17 04:15 2 MG Nitroglycerin (Nitroglycerin 2% Oint) 0.5 inch Q6H EXT 11/27/17 18:00 12/27/17 17:59 11/27/17 17:10 0.5 INCH Metoprolol Succinate (Toprol Xl Tab) 50 mg QAM PO 11/28/17 09:00 12/28/17 08:59 11/29/17 07:58 50 MG Acetaminophen (Tylenol Tab) 650 mg Q4H PRN PO 11/27/17 20:15 12/27/17 20:14 11/27/17 20:46 650 MG Sucralfate (Carafate Susp) 1 gm ACHS PO 11/28/17 13:00 12/28/17 12:59 11/29/17 07:58 1 GM Levofloxacin (Levaquin Tab) 500 mg DAILY@1100 PO 11/28/17 19:30 12/06/17 19:29 11/28/17 20:19 500 MG Pantoprazole Sodium (Protonix Tab) 40 mg BID PO 11/29/17 21:00 12/29/17 20:59 Objective Vital Signs Date Time Temp Pulse Resp B/P (MAP) Pulse Ox O2 Delivery O2 Flow Rate FiO2 11/29/17 08:00 Room Air 11/29/17 06:44 36.4 62 20 116/68 (84) 94 Room Air 11/29/17 03:34 36.6 53 17 112/63 (79) 93 Room Air 11/28/17 23:42 36.5 64 18 121/75 (90) 94 Room Air 11/28/17 20:00 Room Air 11/28/17 19:20 37.3 63 18 125/75 (92) 93 Room Air 11/28/17 15:21 36.5 67 18 130/86 (101) 94 Room Air 11/28/17 11:41 36.8 74 18 118/76 (90) 95 Physical Exam General Appearance: WD/WN, no apparent distress Eyes: normal inspection, PERRL Respiratory/Chest: lungs clear, normal breath sounds Cardiovascular: regular rate, rhythm Abdomen: normal bowel sounds, non tender, soft Neurologic/Psych: alert Skin: normal color Laboratory Results Last 24 Hours Test 11/29/17 05:35 White Blood Count 10.72 K/uL Red Blood Count 5.23 M/uL Hemoglobin 15.5 g/dL Hematocrit 45.5 % Mean Corpuscular Volume 87.0 fL Mean Corpuscular Hemoglobin 29.6 pg Mean Corpuscular Hemoglobin Concent 34.1 g/dl Platelet Count 116 K/uL Mean Platelet Volume 10.9 fL Neutrophils (%) (Auto) 81.1 % Lymphocytes (%) (Auto) 8.9 % Monocytes (%) (Auto) 8.9 % Eosinophils (%) (Auto) 0.7 % Basophils (%) (Auto) 0.1 % Neutrophils # (Auto) 8.71 K/uL Lymphocytes # (Auto) 0.95 K/uL Monocytes # (Auto) 0.95 K/uL Eosinophils # (Auto) 0.07 K/uL Basophils # (Auto) 0.01 K/uL RDW Standard Deviation 45.9 fL RDW Coefficient of Variation 14.3 % Immature Granulocyte % (Auto) 0.3 % Immature Granulocyte # (Auto) 0.03 K/uL Sodium Level 139 mmol/L Potassium Level 3.7 mmol/L Chloride Level 105 mmol/L Carbon Dioxide Level 27 mmol/L Anion Gap 7.0 mmol/L Blood Urea Nitrogen 13 mg/dl Creatinine 0.91 mg/dl Est Creatinine Clear Calc Drug Dose 56.2 ml/min Estimated GFR () 86.9 Estimated GFR (Non- 75.0 BUN/Creatinine Ratio 14.7 Random Glucose 87 mg/dl Calcium Level 7.9 mg/dl Total Bilirubin 1.1 mg/dl Aspartate Amino Transf (AST/SGOT) 20 U/L Alanine Aminotransferase (ALT/SGPT) 17 U/L Alkaline Phosphatase 43 U/L Total Protein 5.4 gm/dl Albumin 2.6 gm/dl Globulin 2.8 gm/dl Albumin/Globulin Ratio 0.9 Lipase 209 U/L Assessment and Plan Patient is an 87 yo male with recurrent pancreatitis. His Lipase has normalized. His T Bili is down to 1.1. His MRCP indicated a side branch IPMN, but did not indicate any particular reason for acute pancreatitis. 1) Continue to increase diet as tolerated 2) Outpatient IgG 4 subclasses. 3) Continue Protonix 40 mg BID. 4) Continue Carafate 1 gm four times daily before meals and at bedtime x 10 days. 5) Follow-up CT scan of the pancreas in 1-2 months for further evaluation/ ensure resolution. 6) Continue antibiotics per ID recommendations. Thank you for allowing us to participate in the care of this patient. If you should have any further questions or concerns, do not hesitate to contact us.
[2017-11-29] MEDS: LEVOFLOXACIN 500 MG TAB PO SCH (13:34)
[2017-11-29 14:35] VITALS: BP 106/64; PULSE 68; TEMP 36.1; O2SAT 94
[2017-11-29] MEDS ORDERED: LVQ500 PO (15:03)
[2017-11-29] MEDS ORDERED: METO-452 PO (15:03)
[2017-11-29] MEDS ORDERED: PANT40TA PO (15:03)
[2017-11-29] MEDS ORDERED: SUCR1TAB29 PO (15:03)
--- NOTE | 2017-11-29 15:19 | Discharge Instructions ---
Discharge Instructions Date of Service Nov 29, 2017. Admission Reason for Admission: Acute pancreatitis Discharge Discharge Diagnosis / Problem: Acute pancreatitis - resolving nicely; reflux disease Discharge Goals Goal(s): Learn about illness, Diagnostic testing, Therapeutic intervention Activity Recommendations Activity Limitations: as noted below Over the next few days as you recover from your pancreatitis please take it easy - no strenuous activities (photoengraving proofer, etc), no going to the gym, etc. By the weekend, if you are feeling well, you can resume driving. . Instructions / Follow-Up Instructions / Follow-Up From Dr. Pollock - You were diagnosed with pancreatitis at time of admission based on your symptoms , elevated blood tests for your pancreas, and multiple imaging studies of your abdomen showing pancreatitis. You improved nicely with fluids, antibiotics, and time. The exact cause of the pancreatitis was uncertain. However, given your endoscopic ultrasound findings from 2014 showing several gallstones, this could have been from a "passed" gallstone. At this time we recommend the following - 1. diet - * 11/29/17 -- "full liquids" -- this includes all liquids (jello, juice, water, caffeine-free sodas, lithuanian ice, broth, etc) as well as milk products & cream-based soups. * , 11/30/17 -- you can gradually start to introduce low fat solid foods into the diet; avoid fried foods, spicy foods, fast foods, etc. Please introduce the solids slowly and carefully. If there is any specific food that bothers your stomach simply stop eating it and try it again in a few days. I would stay on the low-fat diet for about 7-10 days. 2. antibiotics - take levaquin (levofloxacin) 500mg daily for 4 days. Start this TOMORROW on 11/30/17. 3. reflux disease (GERD) - * please INCREASE your protonix to 40mg twice a day. Prescription provided. * please also take carafate (sucralfate) 1gm about 30 minutes before meals & at bedtime for 7 days. Prescription provided. * please remain upright for about 1 hour after eating your meals to help promote digestion. 4. Please STOP your sulindac medication. This medication can cause stomach upset and worsen your reflux symptoms. This can ultimately be resumed by Dr. Wilson in a week or two. I would also avoid ibuprofen (motrin). TYLENOL IS OK for aches/pains. 5. Follow-up - * see Dr. Wilson within 1 week * see Dr. Givens on December 20 as scheduled 6. I believe having [facility] at your home is a fine idea as you recover from this hospitalization. If over time you and your are finding it challenging at home I believe a place like [facility] in their independent living or assisted living areas would be a good option. 7. A follow-up CT scan of your pancreas is recommended in 1-2 months as per GI recommendations. 8. The small, 1cm cyst in your pancreas is likely benign. A discussion can be held with Dr. Wilson or the GI doctors about the pros and cons about whether to repeat an MRI scan in about 1 year of the pancreas. This would be to ensure it is not getting larger or developing suspicious features. 9. Return to [facility] if - * you develop fever over 100.5 degrees * you have recurrent abdominal pain * you have nausea, vomiting, or diarrhea * you develop severe chest pain or shortness of breath * any other concerns Current Hospital Diet Patient's current hospital diet: Full Liquid Diet Discharge Diet Recommended Diet: Full Liquid Diet (with slow advancement to a low fat diet ) Procedures Procedures Performed: 1. gall bladder ultrasound - no obvious gallstones seen 2. CAT scan of abdomen & pelvis - evidence of pancreatitis 3. MRI of the gall bladder/pancreas/bile ducts - 1cm benign cyst in the pancreas, no gallstones seen in the bile ducts Pending Studies Studies pending at discharge: no Laboratory Results Hemoglobin A1c Test 10/17/17 07:29 Range/Units Estimated Average Glucose 123 mg/dl Hemoglobin A1c 5.9 H 4.5-5.6 % Lipid Panel Test 10/17/17 07:29 Range/Units Triglycerides Level 139 0-150 mg/dl Cholesterol Level 140 0-200 mg/dl HDL Cholesterol 51 mg/dl Cholesterol/HDL Ratio 2.7 LDL Cholesterol, Calculated 61 mg/dl Medical Emergencies . Who to Call and When: Medical Emergencies: If at any time you feel your situation is an emergency, please call 911 immediately. . Non-Emergent Contact Non-Emergency issues call your: Primary Care Provider Call Non-Emergent contact if: temperature is above 100.5, your pain is unusual for you, your pain is concerning you, you have any medication questions . . "Provider Documentation" section prepared by Drew Pollock. .
--- NOTE | 2017-11-29 18:03 | PROGRESS NOTE ---
DATE: 11/29/2017 The patient was seen by me this morning in his telemetry unit room. SUBJECTIVE: The patient was feeling well this morning. His only complaint was feeling fatigued secondary to lack of sleep. He complained of being woken up frequently for routine visits by the nursing staff overnight. He denies any chest pain or other anginal type pains. He denies any abdominal or epigastric pain today. No complaints of dyspnea, palpitations, lightheadedness, syncope, or leg pain. MEDICATIONS: This morning included pantoprazole 40 mg p.o. b.i.d., levofloxacin 500 mg daily, sucralfate 1 g before meal and at bedtime, metoprolol succinate ER 50 mg daily, pantoprazole 40 mg IV b.i.d. (discontinued this morning with last dose at 7:58 a.m.), aspirin 81 mg daily, clopidogrel 75 mg daily, finasteride 5 mg daily, nitrofurantoin 50 mg at bedtime, simvastatin 40 mg at bedtime, sulindac 75 mg p.o. b.i.d., terazosin 2 mg at bedtime, and several p.r.n. medications. The patient refused subcu heparin and topical nitroglycerin. ALLERGIES/ADVERSE DRUG REACTIONS: CEFUROXIME, SULFA ANTIBIOTICS. MONITOR HISTORY: Monitor over the past 24 hours with sinus rhythm, premature ventricular beats, and episodes of ventricular bigeminy. PHYSICAL EXAMINATION: VITAL SIGNS: This morning with oral temperature 36.4, pulse 62, blood pressure 116/68, pulse oximetry on room air is 94%. GENERAL APPEARANCE: Shows him to be in no distress. NECK: No jugular venous distention. LUNGS: Normal respiratory effort. Clear. No rales or wheezes. HEART: Regular rate and rhythm, with occasional premature beat. Normal S1 and S2. No murmur, gallop, or rub. ABDOMEN: Soft and nontender. No palpable masses or organomegaly. No bruits. EXTREMITIES: No pretibial edema. No calf tenderness. NEUROLOGIC: Alert and oriented x3. Motor grossly intact. PSYCHIATRIC: Affect normal. LABORATORY DATA: Labs today with WBC 10.72, hemoglobin 15.5, hematocrit 45.5, and platelet count 116. Lipase 209, albumin 2.6, alkaline phosphatase 43, total bilirubin 1.1, potassium 3.7, BUN 13, creatinine 0.91. Troponin Is on this admission were less than 0.015, 0.061, 0.083, 0.047, and 0.061. Electrocardiogram on 11/27/2017 revealed sinus bradycardia, right bundle-branch block, anteroseptal MD, no acute ST or T-wave abnormalities. The anterior septal MD findings are old findings. The patient had an outpatient echocardiogram performed at the [facility] offices on 07/17/2017. The images were reviewed by me today. He was in ventricular bigeminy by monitor at that time. Difficult to evaluate LV systolic function. However, to me it appears that his ejection fraction is approximately 45%. Evidence of anterior septal and apical MD. This has been previously documented on echocardiography since 2004. ASSESSMENT: 1. Admission with acute pancreatitis. Gastrointestinal symptoms resolved this morning. Lipase this morning is normal. 2. Longstanding history of coronary artery disease. History of acute anterior myocardial infarction in 09/2004. Initially treated with thrombolytic therapy at [facility]. Transferred to [facility] where he underwent drug-eluting stent deployment in proximal and mid LAD, 2.5 x 12 mm and 2.75 x 28 mm stents. Subacute stent thrombosis, 10/14/2004. Repeat presentation to [facility] with acute anterior MD. Intraaortic balloon pump placed and then transferred to [facility]. Catheterization revealed no LAD occlusion. Extensive thrombus in proximal LAD. Treated with repeat balloon inflations and thrombectomy. Echocardiogram afterwards with LV ejection fraction of 45%. Anteroapical and anteroseptal MD. Non-ST elevation myocardial infarction on 07/31/2006. Transferred to [facility]. Cardiac catheterization at that time with patent stent sites in LAD. Catheterization with 20% stenosis, distal to proximal LAD stent. Left circumflex with mild irregularities. A 30% mid RCA stenosis. 30% PDA stenosis. LV ejection fraction 40% on LV angiography. The patient denies any of his previous anginal type symptoms recently. None on this admission. Prior to the acute onset of his GI symptoms, he was in his normal state of health. He had stable exercise tolerance and stamina. Troponin I is mildly elevated. These are not diagnostic of a myocardial injury. Suspect mild elevation in troponin I secondary to the stress of his acute illness. Electrocardiogram without any acute changes with myocardial ischemia. 2. 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 It is asymptomatic. 3. Blood pressure under good control. 4. No evidence of congestive heart failure on exam. No symptoms of congestive heart failure. 5. Renal function normal today. 6. Echo imaging in July with chronic findings of anteroseptal and anteroapical myocardial infarction. RECOMMENDATIONS: 1. Discharged patient to home from a cardiac standpoint. 2. Continue current cardiac medications. 3. The patient has cardiology followup visit with me in early December. This was previously scheduled. 4. Follow up with his primary care provider. The above cardiac assessment and recommendations were discussed with the patient and with his hospitalist, Dr. Drew Pollock. JASPER
[2017-11-29] MEDS ORDERED: PANTOprazole SOD 40 MG TAB PO SCH (21:00)
--- NOTE | 2017-12-02 16:57 | Discharge Summary ---
Discharge Summary Date of Service Dec 02, 2017. Discharge Summary Admission Date: Nov 26, 2017 at 18:25 Discharge Date: Nov 29, 2017 Discharge Disposition: Home with services Principal Diagnosis: acute pancreatitis Problems/Secondary Diagnoses: 1. pre-T2DM 2. GERD 3. CAD s/p multiple MIs 4. HTN 5. acute pancreatitis 2014 - uncertain etiology - possibly due to gallstones 6. recurrent UTIs - on chronic antibiotic prophylaxis 7. BPH 8. chronic systolic CHF 2nd to ischemic cardiomyopathy - EF 30% (07/2017 echo) 9. hyperlipidemia 10. pancreatic IPMN - 1cm 11. polycythemia - improved, but etiology uncertain as it is chronic 12. large hiatal hernia 13. positive troponin - likely myocardial demand ischemia 2nd to acute pancreatitis 14. CKD stage 3 Immunizations: Have You Had Influenza Vaccine: Yes History of Tetanus Vaccine?: Yes History of Pneumococcal: Yes History of Hepatitis B Vaccine: No Procedures: 1. MRCP - IMPRESSION: 1. 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 Minor fusiform dilatation of the pancreatic duct within the distal body 3. Peripancreatic edema consistent with acute pancreatitis 4. No evidence of intra or extrahepatic biliary ductal dilatation. No calculi identified. 2. RUQ u/s - IMPRESSION: 1. Technically difficult exam due to suboptimal penetration. No gallstones or biliary ductal dilatation identified. 2. Obscured pancreas due to overlying bowel gas. 3. Multiple right renal cysts. 3. CT abd/pelvis - IMPRESSION: 1. Findings consistent with acute pancreatitis. Moderate inflammation and fluid centered on the pancreatic tail and body. Apparent diminished enhancement within the pancreas body favors acute interstitial edematous pancreatitis. Pancreatic necrosis could appear similar although is considered less likely. A follow-up CT in one to 2 months to ensure resolution is recommended to exclude the unlikely possibility of an underlying mass. 2. Sigmoid wall thickening with diverticulosis. This is unchanged since prior CT of July 08, 2014 and likely chronic. 3. No bowel obstruction. 4. Large hiatal hernia. Consultations: gastroenterology - Armin Rojas, DO infectious disease - Alissa Calderon, DO cardiology - Juan Manuel Hanley MD PT, OT Medication Reconciliation New Medications: Sucralfate (Carafate) 1 Gm Tab 1 GM PO ACHS for 7 Days, #28 TAB 0 Refills Levofloxacin (Levofloxacin) 500 Mg Tab 500 MG PO DAILY for 4 Days, #4 TAB 0 Refills start 11/30/17 Changed Medications: Metoprolol Succinate (Toprol Xl) 50 Mg Tab 1 TAB PO DAILY for 30 Days, #30 TAB 5 Refills (Changed from: Atenolol 25 Mg Tab 12.5 Mg PO BID) Pantoprazole Sodium (Protonix) 40 Mg Tab 40 MG PO BID, #60 TAB 1 Refill (Changed from: Pantoprazole Sodium (Protonix) 20 Mg Tab 20 Mg PO QPM) Continued Medications: Alprazolam (Xanax) 0.5 Mg Tab 0.5 MG PO HS PRN for Sleep, TAB Aspirin (Aspir-81) 81 Mg Tab 1 TABLET QAM Clopidogrel (Plavix) 75 Mg Tab 1 TAB PO QAM Finasteride (Proscar) 5 Mg Tab 1 TAB PO DAILY Nitrofurantoin Macrocrystals (Nitrofurantoin Macrocryst) 50 Mg Cap 50 MG PO HS Simvastatin (Simvastatin) 40 Mg Tab 40 MG PO HS Terazosin Hcl (Hytrin) 2 Mg Cap 2 MG PO HS Discontinued Medications: Ibuprofen (Advil) 200 Mg Tab 200 MG PO TID PRN for Pain, TAB Sulindac (Sulindac) 150 Mg Tab 75 MG PO BID Discharge Exam Physical Exam: General Appearance: no apparent distress, + pertinent finding (tired appearing but a/o x 3) ENT: pharynx normal Neck: no JVD Respiratory/Chest: lungs clear, no respiratory distress, no accessory muscle use Cardiovascular: regular rate, rhythm, no gallop, no murmur, normal peripheral pulses Abdomen / GI: normal bowel sounds, non tender, soft, no organomegaly Extremities: no pedal edema Neurologic/Psychiatric: alert, oriented x 3 Hospital Course HISTORY OF PRESENT ILLNESS: 87yo male with history of CAD s/p multiple MIs and chronic systolic CHF who presents with abdominal pain beginning this am around 10am. He had eaten breakfast consisting of coffee, cheerios, and orange juice. The abdominal pain came on gradually and then got quite severe. The pain radiated into the chest. He had acute pancreatitis in 2014 and the pain today was quite similar to then. He denies heavy alcohol consumption (glass of wine occasionally). No nausea, emesis, diarrhea. Last bowel movement was this AM and was normal. During my assessment he was still having pain. He initially thought he was having another heart attack today but the pain today was different than previous heart attack associated pains. During his ER assessment his CT abd/pelvis demonstrated acute pancreatitis and lipase was 7000. HOSPITAL COURSE: 1. acute pancreatitis - the patient's pancreatitis resolved clinically & biochemically with customary measures including bowel rest, pain medication, and IV fluids. His lipase completely normalized while hospitalized. He was ultimately resumed on a clear liquid diet and this was advanced to full liquids without any GI intolerance. The exact etiology of his pancreatitis was uncertain as imaging failed to demonstrate gallstones, calcium was normal, triglycerides were normal, and he does not drink alcohol. He had been taking sulindac for many years and the literature suggests about a 1 % chance of pancreatitis with taking this medication. Although the patient did not recall this the patient indeed [facility] Dr. Sandra Scales, in 2014. During that procedure gallstones were visualized in the gall bladder. Cholecystectomy and repair of his large hiatal hernia were advised at that time but the patient declined. Thus, it is conceivable this episode was due to a passed gallstone. Due to a modest concern there was pancreatic necrosis the patient did receive IV antibiotic therapy as a precautionary measure. However, it was ultimately felt that he did NOT have necrosis. At discharge we recommended discontinuation of the sulindac and gradual advancement of his diet over several days to a low-fat diet. He will follow-up with his PCP Dr. Wilson and [facility] after discharge for the above issue. 2. chest discomforts, burping, neck discomfort, hiccups - these symptoms improved with increased dose of PPI and addition of carafate. These symptoms were felt to be not cardiac in origin but due to his GERD and hiatal hernia. He was seen in consult by [facility] who agreed that his symptoms were likely GI in origin and that his troponin elevation was likely myocardial demand ischemia rather than a minor ACS. 3. polycythemia - he has had top-normal hemoglobins for 1-2 years but the hemoglobin had been inching upwards more recently. After hydration his H/H improved to normal levels (admission hemoglobin was 18.7 , and discharge hemoglobin was 15.5. He will need a repeat CBC after discharge for stability. Given that his H/H improved with IVF there was at least some element of hemoconcentration. 4. side branch pancreatic IPMN - the patient has a strong family h/o pancreatic cancer and this patient may elect to continue surveillance on an annual basis to rule out conversion of the IPMN to a malignant cyst. Will defer future imaging to the patient's PCP and GI in conjunction with the patient's wishes. 5. chronic systolic CHF - he remained compensated during his stay. The patient was seen by PT/OT and home therapy was recommended for after discharge. These services have been set up for him by case management. All other medical problems remained stable while hospitalized. Total Time Spent: Greater than 30 minutes This includes examination of the patient, discharge planning, medication reconciliation, and communication with other providers. Discharge Instructions Please refer to the electronic Patient Visit Report (Discharge Instructions) for additional information. Follow-Up Vonda Norton PA-C on MondayDecember 08 at 2:00 pm. Additional Copies To Armin Rojas D.O.; Drew Wilson M.D.; Vonda Norton PA; Oliver Givens M.D.
== END 2017-11-29 15:59 | disposition home health service (06) | DRG 439 ==
LOC: C.EDB 15:13 → C.2T 18:25 → ENRESERV 18:39
PROVIDERS: ADMIT Internal Medicine; ATTEND Internal Medicine
DX: K85.90 Acute pancreatitis without necrosis or infection, unspecified (principal); I50.22 Chronic systolic (congestive) heart failure; K80.70 Calculus of gallbladder and bile duct without cholecystitis without obstruction; R07.9 Chest pain, unspecified; I49.3 Ventricular premature depolarization; R00.8 Other abnormalities of heart beat; D13.6 Benign neoplasm of pancreas; I25.10 Atherosclerotic heart disease of native coronary artery without angina pectoris; D75.1 Secondary polycythemia; K21.9 Gastro-esophageal reflux disease without esophagitis; N40.0 Benign prostatic hyperplasia without lower urinary tract symptoms; I11.0 Hypertensive heart disease with heart failure; I25.5 Ischemic cardiomyopathy; E78.5 Hyperlipidemia, unspecified; Z66 Do not resuscitate; Z87.440 Personal history of urinary (tract) infections; I25.2 Old myocardial infarction; Z95.5 Presence of coronary angioplasty implant and graft; Z87.19 Personal history of other diseases of the digestive system; Z87.891 Personal history of nicotine dependence; Z79.02 Long term (current) use of antithrombotics/antiplatelets; Z79.1 Long term (current) use of non-steroidal anti-inflammatories (NSAID); Z79.2 Long term (current) use of antibiotics; Z79.82 Long term (current) use of aspirin; Z79.899 Other long term (current) drug therapy; Z88.1 Allergy status to other antibiotic agents; Z88.2 Allergy status to sulfonamides; Z80.0 Family history of malignant neoplasm of digestive organs; Z83.79 Family history of other diseases of the digestive system; Z82.49 Family history of ischemic heart disease and other diseases of the circulatory system

== ENCOUNTER 2018-09-17 14:14 | Inpatient (IN) ==
--- OUTSIDE RECORDS SUMMARY | 2018-09-17 14:18 | External Medical Summary | Continuity of Care Document ---
:1930 Author Name Radha Ortiz, Provider Address Unavailable Unavailable , Care Team Providers Name Role Phone Rodney Wayne PA-C Unavailable [email or web address] [email or web address] Givens M.D. 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) History of SCC (squamous cell carcinoma) of skin (V10.83) (Z 85.828) Inflamed seborrheic keratosis (702.11) (L82.0) Seborrheic keratosis (702.19) (L82.1) Vitiligo (709.01) (L80) 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) Multiple benign nevi (216.9) (D22.9) PVC (premature ventricular contraction) (427.69) (I49.3) Hypercholesterolemia (272.0) (E78.00) Arteriosclerotic coronary artery disease (414.00) (I25.10) Acute pancreatitis, unspecified complica tion status, unspecified pancreatitis type (577.0) (K85.90) Former smoker (V15.82) (Z87.891) Low back pain (724.2) (M54.5) History of nonmelanoma skin cancer (V10.83) (Z85.828) Actinic keratosis (702.0) (L57.0) Urinary tract infection, chronic (599.0) (N39.0) Enlarged prostate without lower urinary tract symptoms (luts ) (600.00) (N40.0) 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 Start: 22-Jul-2014 Refills: 0 Simvastatin 40 MG Oral Tablet; TAKE 1 TABLET BY MOUTH AT BEDTIME Angel Wilson Start: 17-Apr-2012 Quantity: 90 Refills: 3 Nitrofurantoin Macrocrystal 50 MG Oral C apsule; TAKE 1 CAPSULE DAILY AT BEDTIME. Angel Wilson Start: 12-Jul-2016 Quantity: 90 Refills: 3 Clopidogrel Bisulfate 75 MG Oral Tablet; TAKE 1 TABLET BY MOUTH DAILY Angel Wilson Start: 09-May-2016 Quantity: 90 Refills: 3 Aspirin 81 MG TABS; TAKE 1 TABLET DAILY. Angel Givens Refills: 0 Finasteride 5 MG Oral Tablet; TAKE 1 TABLET BY MOUTH Angel Tinsley Start: 09-May-2016 Quantity: 90 Refills: 3 Pantoprazole Sodium 20 MG Oral Tablet De layed Release; TAKE 1 TABLET BY MOUTH DAILY Angel Wilson Start: 09-May-2016 Quantity: 90 Refills: 3 Terazosin HCl - 2 MG Oral Capsule; TAKE 1 CAPSULE BY M OUTH DAILY Angel Wilson Start: 19-Apr-2011 Quantity: 90 Refills: 3 Sulindac 150 MG Oral Tablet; TAKE ONE-HALF TABLET BY M OUTH TWICE A DAY Angel Wilson Start: 19-Apr-2011 Quantity: 90 Refills: 3 Atenolol 25 MG Oral Tablet; TAKE ONE-HALF TABLET BY [facility] ONCE DAILY Angel Givens Start: 13-Nov-2012 Quantity: 45 Refills: 3 ALPRAZolam 0.5 MG Oral Tablet; TAKE 1 TABLET AT BEDTIM E NEEDED. AV Wayne Start: 29-Jun-2017 Quantity: 30 Refills: 0 Procedures Procedures not documented Immunizations Influenza On: 18-Jan-2011 9:40 Lot #: [id number], [employer] PASTEUR Fluzone INJ On: 01-Feb-2012 11:13 Lot #: [id number], SANOFI PASTEUR Fluzone INJ On: 30-Jan-2013 15:11 Lot #: [id number], SANOFI PASTEUR Fluzone High-Dose Intramuscular Suspension On: 14-Jan-2015 14 :05 Lot #: [id number], SANOFI PASTEUR Fluzone High-Dose Intramuscular Suspension On: 13-Jan-2016 15 :53 Lot #: [id number], SANOFI PASTEUR Fluzone High-Dose Intramuscular Suspension On: 16-Jan-2017 12 :33 Lot #: [id number], [employer]OFI PASTEUR Family History Mother No pertinent family history (V49.89) (Z78.9) Status: Active Father No pertinent family history (V49.89) (Z78.9) Status: Active Social History - Smoking Status Former smoker Plan of Treatment Planned Encounters Appointment; Robert Layton M.D. Start: 17-Jul-2019 11:30 Re quest Planned Observations Planned Goals not documented Results No Known Results Results not documented Encounters Appointment; Robert Layton M.D. 11-Jul-2018 13:40 Encounter Diagnosis: Problem not documented Appointment; Oliver Givens M.D. 27-Jun-2018 11:15 Encounter Diagnosis: Problem not documented Appointment; Drew Wilson M.D. 17-May-2018 14:15 Encounter Diagnosis: Problem not documented Appointment; Vonda Norton PA-C 05-Jan-2018 10:30 Encounter Diagnosis: Problem not documented Appointment; Oliver Givens M.D. 27-Dec-2017 9:30 Encounter Diagnosis: Problem not documented Appointment; Drew Wilson M.D. 05-Dec-2017 11:15 Encounter Diagnosis: Problem not documented Appointment; Drew Wilson M.D. 24-Oct-2017 11:45 Encounter Diagnosis: Problem not documented Appointment; Echo/Stress, Echo/Stress 17-Jul-2017 13:45 Encounter Diagnosis: Problem not documented Appointment; Oliver Givens M.D. 26-Jun-2017 11:30 Encounter Diagnosis: Problem not documented Appointment; Drew Wilson M.D. 25-Apr-2017 14:15 Encounter Diagnosis: Problem not documented Appointment; Theodore Yip M.D. 31-Jan-2017 16:20 Encounter Diagnosis: Problem not documented Appointment; Oliver Givens M.D. 16-Jan-2017 11:30 Encounter Diagnosis: Problem not documented Appointment; Drew Wilson M.D. 20-Oct-2016 11:45 Encounter Diagnosis: Problem not documented Appointment; Robert Layton M.D. 17-Jul-2019 11:30 Encounter Diagnosis: Problem not documented
[2018-09-17] MEDS ORDERED: SODIUM CHLORIDE 0.9% 1000ML 250 ML IV ONE (15:28)
[2018-09-17] MEDS ORDERED: MoRPHine SULFATE 4 MG/ML 1 ML CARP\\VIAL IV STA (15:36)
[2018-09-17] MEDS ORDERED: ONDANSETRON INJ 2 MG/ML 2 ML VIAL IV STA (15:36)
[2018-09-17 16:04] LABS: Basophils # (auto) 0.02 K/uL (0-0.2); Basophils % (auto) 0.2 %; Eosinophils # (auto) 0.02 K/uL (0-0.5); Eosinophils % (auto) 0.2 %; Hematocrit (blood only) 54.1 % (42-52); Hemoglobin 19.4 g/dL (14.0-18.0); Immature Granulocytes # (auto) 0.03 K/uL (0.00-0.02); Immature Granulocytes % (auto) 0.2 %; Lymphocytes # (auto) 1.04 K/uL (1.2-3.4); Lymphocytes % (auto) 8.5 %; Mean Corpuscular Hgb Conc 35.9 g/dL (32-36); Mean Corpuscular Volume 84.5 fL (80-100); Monocytes # (auto) 0.82 K/uL (0.11-0.59); Monocytes % (auto) 6.7 %; Neutrophils # (auto) 10.28 K/uL (1.4-6.5); Neutrophils % (auto) 84.2 %; Platelet Count 170 K/uL (130-400); RDW Coefficient of Variation 13.8 % (11.5-14.5); RDW Standard Deviation 42.6 fL (36.4-46.3); White Blood Count 12.21 K/uL (4.8-10.8)
[2018-09-17 16:23] LABS: Alanine Aminotransferase 28 U/L (12-78); Aspartate Aminotransferase 23 U/L (15-37); BUN Creatinine Ratio 20.1 (10-20); Blood Urea Nitrogen 24 mg/dl (7-18); Calcium 9.4 mg/dl (8.5-10.1); Carbon Dioxide 26 mmol/L (21-32); Chloride 105 mmol/L (98-107); Est GFR (African American) 60.5; Est GFR (Non-African American) 52.2; Glucose 109 mg/dl (70-99); Potassium 3.8 mmol/L (3.5-5.1); Sodium 139 mmol/L (136-145)
[2018-09-17 16:27] LABS: Albumin Globulin Ratio 1.4 (0.9-2); Alkaline Phosphatase 50 U/L (45-117); Amylase 1095 U/L (25-115); Globulin 2.8 gm/dl (2.5-4.0); Total Protein 6.8 gm/dl (6.4-8.2); Troponin I < 0.015 ng/ml (0-0.045)
[2018-09-17] MEDS ORDERED: FAMOTIDINE 20MG IV PUSH 20 MG/5 ML SYR IV STA (16:36)
[2018-09-17] MEDS ORDERED: SODIUM CHLORIDE 0.9% 250 ML IV ONE (16:40)
--- NOTE | 2018-09-17 16:41 | Emergency Department Note ---
Entered by Nahed Doss acting as a scribe for Jose Kothari DO History of Present Illness General Chief complaint: Abdominal Pain Stated complaint: HX PANCREATITIS Time Seen by Provider: 09/17/18 15:14 Source: patient History of Present Illness Provider complaint: abdominal pain Onset (ago): hour(s) 3 Location: abdomen Pain Consistency: + constant and + other (sudden) Maximum Pain Intensity: 8 Associated symptoms: + chest pain; no nausea/vomiting and no shortness of breath The patient is an 88 year old male who presents to the Emergency Department with complaints of constant abdominal pain beginning 3 hours prior to arrival. The patient reports that his pain came on suddenly. He reports having chest pain but denies shortness of breath, diarrhea, urinary symptoms, nausea, and vomiting. The patient reports a history of pancreatitis and states that his abdominal pain today feel similar. Home Medications Home Medications Medication Instructions Recorded Confirmed Type alprazolam 0.5 mg PO HS 09/17/18 09/17/18 History aspirin [Aspir-81] 81 mg PO QAM 09/17/18 09/17/18 History atenolol 12.5 mg PO QAM 09/17/18 09/17/18 History clopidogrel 75 mg PO QAM 09/17/18 09/17/18 History finasteride 5 mg PO QAM 09/17/18 09/17/18 History nitrofurantoin macrocrystal 50 mg PO QAM 09/17/18 09/17/18 History pantoprazole 20 mg PO QAM 09/17/18 09/17/18 History simvastatin 40 mg PO HS 09/17/18 09/17/18 History sulindac 75 mg PO BID 09/17/18 09/17/18 History terazosin 2 mg PO HS 09/17/18 09/17/18 History Allergies Allergy/AdvReac Type Severity Reaction Status Date / Time cefuroxime Allergy Unknown Verified 09/17/18 17:01 Sulfa (Sulfonamide Allergy Unknown Unknown Verified 09/17/18 17:01 Antibiotics) Past Med/Surg History Medical History Pancreatitis (Acute) Social History Preferred Language: Lithuanian Review of Systems See HPI for pertinent positives & negatives. and A total of 10 systems reviewed and were otherwise negative Physical Exam Vital Signs Vital Signs - 24 hr 09/17/18 14:29 09/17/18 16:15 09/17/18 16:57 Temperature 36.6 C Temperature Source Oral Sepsis Recent Fever Within 48 Hours No Sepsis New/Unexplained Change in Mental Status No Sepsis Action Taken by Nursing No Action Required Pulse Rate 61 Pulse Rate [Apical] 70 72 Respiratory Rate 20 17 18 Respiratory Effort / Characteristics Non-Labored Non-Labored Spontaneous Non-Labored Spontaneous Respiratory Depth Normal Normal Normal Respiratory Pattern Regular Regular Blood Pressure 151/77 H Blood Pressure [Left Arm] 168/87 H 171/107 H Blood Pressure Mean 101 Blood Pressure Mean [Left Arm] 114 128 Blood Pressure Position Sitting Blood Pressure Position [Left Arm] Lying Pulse Oximetry 98 96 97 Oxygen Delivery Method Room Air Room Air Room Air GENERAL: Patient is awake alert in no acute distress patient is resting comfortably and showing no signs of anxiety EYES: The conjunctivae are clear. The pupils are round and reactive. EARS, NOSE, MOUTH AND THROAT: The nose is without any evidence of any deformity. Mucous membranes are moist tongue is midline NECK: The neck is nontender and supple. RESPIRATORY: Normal respiratory effort is noted there is no evidence of wheezing rhonchi or rales CARDIOVASCULAR: Regular rate and rhythm noted there no murmurs rubs or gallops normal S1 normal S2 GASTROINTESTINAL: The abdomen is mildly distended. There is diffuse tenderness to palpation. Tenderness is specifically noted in the epigastric region in the right upper quadrant. No guarding or rigidity was noted. MUSCULOSKELETAL/EXTREMITIES: There is no evidence of gross deformity full range of motion is noted in the hips and shoulders SKIN: There is no obvious evidence of any rash. There are no petechiae, pallor or cyanosis noted. NEUROLOGIC: Patient is awake alert and oriented x3. Course 1517: The patient was evaluated by Dr. Cat-Resident. 1636: The patient was evaluated in room A10. A history and physical were performed. 1701: I discussed the patient's case with Dr. Jose R Lind who will evaluate the patient for further management, Consultations Consultation #1: Dr. Axel Lind Time: 17:01 Administered Medications Discontinued Medications Sodium Chloride (Nss 1000ml) 250 mls @ 999 mls/hr IV .Q16M ONE Stop: 09/17/18 15:43 Last Infusion: 09/17/18 16:38 Dose: 0 mls/hr Documented by: [id number] Admin: 09/17/18 16:09 Dose: 999 mls/hr Documented by: [id number] Famotidine (Pepcid 20mg Iv Push) 20 mg in 5 mls @ 2.5 mls/min IV NOW STA Stop: 09/17/18 16:37 Last Admin: 09/17/18 16:50 Dose: 2.5 mls/min Documented by: [id number] Sodium Chloride (Nss) 250 mls @ 999 mls/hr IV .Q16M ONE Stop: 09/17/18 16:55 Last Infusion: 09/17/18 17:16 Dose: 0 mls/hr Documented by: [id number] Admin: 09/17/18 16:47 Dose: 999 mls/hr Documented by: [id number] Morphine Sulfate (Morphine Sulfate) 4 mg IV NOW STA Stop: 09/17/18 15:37 Last Admin: 09/17/18 16:09 Dose: 4 mg Documented by: [id number] Ondansetron HCl (Zofran) 4 mg IV NOW STA Stop: 09/17/18 15:37 Last Admin: 09/17/18 16:09 Dose: 4 mg Documented by: [id number] Medical Decision Making Differential Diagnosis Differential diagnosis: Etiologies such as biliary colic, cholecystitis, hepatitis, pancreatitis, cardiac disease, pancreatitis, gastritis, peptic ulcer disease, appendicitis, cystitis, diverticulitis, mesenteric ischemia, inflammatory bowel disease, ileus, bowel obstruction, testicular torsion, aortic pathology, shingles, as well as others were considered. Medical Records Attestation: I reviewed the patient's medical records. Home Medications Current Medication List: was personally reviewed by me Laboratory Data Attestation: I reviewed the patient's lab results. Result diagrams: 09/17/18 15:54 09/17/18 15:54 Lab Results 09/17/18 09/17/18 Range/Units 15:54 15:54 WBC 12.21 H (4.8-10.8) K/uL RBC 6.40 H (4.7-6.1) M/uL Hgb 19.4 H (14.0-18.0) g/dL Hct 54.1 H (42-52) % MCV 84.5 (80-100) fL MCH 30.3 (25-34) pg MCHC 35.9 (32-36) g/dL RDW Std Deviation 42.6 (36.4-46.3) fL RDW Coeff of Jane 13.8 (11.5-14.5) % Plt Count 170 (130-400) K/uL MPV 10.0 (7.4-10.4) fL Immature Gran % (Auto) 0.2 % Neut % (Auto) 84.2 % Lymph % (Auto) 8.5 % Webb % (Auto) 6.7 % Eos % (Auto) 0.2 % Baso % (Auto) 0.2 % Immature Gran # (Auto) 0.03 H (0.00-0.02) K/uL Neut # (Auto) 10.28 H (1.4-6.5) K/uL Lymph # (Auto) 1.04 L (1.2-3.4) K/uL Webb # (Auto) 0.82 H (0.11-0.59) K/uL Eos # (Auto) 0.02 (0-0.5) K/uL Baso # (Auto) 0.02 (0-0.2) K/uL Sodium 139 (136-145) mmol/L Potassium 3.8 (3.5-5.1) mmol/L Chloride 105 (98-107) mmol/L Carbon Dioxide 26 (21-32) mmol/L Anion Gap 8.0 (3-11) BUN 24 H (7-18) mg/dl Creatinine 1.22 (0.6-1.4) mg/dl Est Cr Clr Drug Dosing 39.0 ml/min Est GFR ( Amer) 60.5 Est GFR (Non-Af Amer) 52.2 BUN/Creatinine Ratio 20.1 H (10-20) Glucose 109 H (70-99) mg/dl Calcium 9.4 (8.5-10.1) mg/dl Total Bilirubin 1.0 (0.2-1) mg/dl AST 23 (15-37) U/L ALT 28 (12-78) U/L Alkaline Phosphatase 50 (45-117) U/L Troponin I < 0.015 (0-0.045) ng/ml Total Protein 6.8 (6.4-8.2) gm/dl Albumin 4.0 (3.4-5.0) gm/dl Globulin 2.8 (2.5-4.0) gm/dl Albumin/Globulin Ratio 1.4 (0.9-2) Amylase 1095 H (25-115) U/L Lipase 55179 H (73-393) U/L Imaging Data Radiologist's Impression: Radiology results as stated below per my review and the radiologist's interpretation: KUB HISTORY: Generalized abdominal pain COMPARISON: Abdomen and pelvis CT 11/26/2017. FINDINGS: The bowel gas pattern is unremarkable. There are no dilated loops of small bowel to suggest an obstruction. No renal calculi. No ureteral calculi. No pneumoperitoneum or pneumatosis. Large hiatal hernia is again noted. Moderate to large amount of well-formed stool seen throughout the colon and rectum. IMPRESSION: 1. Moderate to large amount of well-formed stool seen throughout the colon and rectum. 2. No evidence for bowel obstruction. 3. Large hiatal hernia. Electronically signed by: Zhang Gray M.D. 09/17/2018 4:43 PM XR chest 1V portable HISTORY: Atypical chest pain COMPARISON: Chest 11/26/2017. FINDINGS: No pneumothorax. No pleural effusions. Large left basilar hiatal hernia remains unchanged. No new focal lung consolidations to suggest pneumonia. No evidence for pulmonary edema. The heart remains borderline enlarged. Mildly tortuous thoracic aorta. IMPRESSION: No significant change compared to the prior study. No acute process. Large hiatal hernia is again noted. Electronically signed by: Zhang Gray M.D. 09/17/2018 4:42 PM ECG Data Attestation: I personally reviewed and interpreted this ECG as follows: Indication: abdominal pain Rate (beats per minute): 72 Rhythm: normal sinus Findings: + PVC and + RBBB Comparison ECG Date: from (11/27/17) Change: no significant change Blood Pressure Blood Pressure Findings: Elevated blood pressure Blood Pressure Disposition: further management by hospitalist BERNABE Aden The patient is an 88-year-old male who presented to the emergency department for an evaluation of abdominal pain. The patient has had similar episodes in the past which were consistent with pancreatitis. The patient was treated with IV fluids and IV pain medication in the emergency department. He was reevaluated multiple times. We discussed the patient's laboratory and radiographic studies with him. He was found to have a very elevated lipase. For this reason the patient's condition was discussed with the on-call [facility] hospitalist. They have agreed to evaluate the patient in the emergency department for further management and disposition. The patient was feeling much better on subsequent reevaluation. Impression & Plan Pancreatitis, Abdominal pain Discharge Plan Visit Data Chief Complaint: Abdominal Pain Stated Complaint: HX PANCREATITIS ED Provider: Jose Kothari ED Midlevel Provider: Nilsa Cat Discharge Problem: Pancreatitis, Abdominal pain Patient Disposition: Being Evaluated by Hospitalist Forms Stand Alone Forms: My [facility] Prescriptions Prescriptions: No Action nitrofurantoin macrocrystal 50 mg capsule 50 mg PO QAM RF: 0 atenolol 25 mg tablet 12.5 mg PO QAM RF: 0 sulindac 150 mg tablet 75 mg PO BID RF: 0 clopidogrel 75 mg tablet 75 mg PO QAM RF: 0 aspirin [Aspir-81] 81 mg Tablet,Delayed Release (Dr/Ec) 81 mg PO QAM RF: 0 simvastatin 40 mg tablet 40 mg PO HS RF: 0 pantoprazole 20 mg tablet,delayed release (DR/EC) 20 mg PO QAM RF: 0 alprazolam 0.5 mg tablet 0.5 mg PO HS RF: 0 terazosin 2 mg capsule 2 mg PO HS RF: 0 finasteride 5 mg tablet 5 mg PO QAM RF: 0 Referrals Referrals: Rah Wilson MD [Primary Care Provider] - Discharge Problem: Pancreatitis Qualifiers: Chronicity: acute Pancreatitis type: unspecified pancreatitis type Acute pancreatitis complication: unspecified Qualified Code(s): K85.90 - Acute pancr eatitis without necrosis or infection, unspecified Abdominal pain Qualifiers: Abdominal location: unspecified location Qualified Code(s): R10.9 - Unspecified abdominal pain The scribe's documentation has been prepared under my direction and personally reviewed by me in its entirety. I confirm that the note above accurately reflects all work, treatment, procedures, and medical decision making performed by me.
--- NOTE | 2018-09-17 16:43 | XRay Report ---
XR chest 1V portable HISTORY: Atypical chest pain COMPARISON: Chest 11/26/2017. FINDINGS: No pneumothorax. No pleural effusions. Large left basilar hiatal hernia remains unchanged. No new focal lung consolidations to suggest pneumonia. No evidence for pulmonary edema. The heart rem ains borderline enlarged. Mildly tortuous thoracic aorta. IMPRESSION: No significant change compared to the prior study. No acute process. Large hiatal hernia is again not ed. Electronically signed by: Zhang Gray M.D. 09/17/2018 4:42 PM
--- NOTE | 2018-09-17 16:44 | XRay Report ---
KUB HISTORY: Generalized abdominal pain COMPARISON: Abdomen and pelvis CT 11/26/2017. FINDINGS: The bowel gas pattern is unremarkable. There are no dilated loops of small bowel to suggest an obstruction. No renal calculi. No ureteral calculi. No pneumoperitoneum or pneumatosis. Large hi atal hernia is again noted. Moderate to large amount of well-formed stool seen throughout the colon a nd rectum. IMPRESSION: 1. Moderate to large amount of well-formed stool seen throughout the colon and rectum. 2. No evidence for bowel obstruction. 3. Large hiatal hernia. Electronically signed by: Zhang Gray M.D. 09/17/2018 4:43 PM
--- NOTE | 2018-09-17 17:36 | Emergency Department Note ---
ED Visit Note I assisted attending Dr. Kothari in the care of this patient. Please see attending's note for details of the visit. Nilsa Cat MD [employer] PGY-2 . Resident Activity Tracking Resident Involvement: Resident Care Provided Care Provided: Adult ED : Pancreatitis Qualifiers: Chronicity: acute Pancreatitis type: unspecified pancreatitis type Acute pancreatitis complication: unspecified Qualified Code(s): K85.90 - Acute pancreatitis without necrosis or infection, unspecified Abdominal pain Qualifiers: Abdominal location: unspecified location Qualified Code(s): R10.9 - Unspecified abdominal pain
--- NOTE | 2018-09-17 19:05 | History & Physical Report ---
Date of Service September 17, 2018 Assessment & Plan (1) Pancreatitis: Dx clinically Lipase markedly elevated, WBC with slight elevation KUB noted for stool IVF, NPO, morphine Hx of gallstones, RUQ US pending (2) HTN (hypertension): continue home meds (3) GERD (gastroesophageal reflux disease): continue PPI via IV Hx of Barretts, last EGD 2014 (4) CAD (coronary artery disease): s/p multiple MIs with stents Will continue aspirin/plavix given risk (5) Hyperlipidemia: Hold statin (6) Anxiety: continue home meds (7) BPH (benign prostatic hyperplasia): continue home meds given IVF use (8) Recurrent UTI: Nitrofurantoin and sulidac, continue (9) DVT prophylaxis: SCDs History of Present Illness Primary Care Provider: Rah Wilson MD 88 y/o M c/o abd pain. Pt states he was in his usual state of health until mid morning today when he had sudden onset of abd pain while taking his to an appt. He states that it mostly resolved, but then returned. It is diffuse and sharp. He states it was similar to prior pancreatitis episodes, so he came to the ED for eval. He states he feels fine otherwise. Pt denies fever, SOB, chest pain, n/v/c/d, LE pain or swelling. Pt was given IVF and pain medication in the ED. He states his pain went from an 8 to a 2 at this time and is more of an ache now. Pt states he was told he had gallstones with his first episode of pancreatitis several years ago. He did not need a cholecystectomy at that time. He had a second episode about 2 years ago, but has had no abd pain since that time. Allergies Allergy/AdvReac Type Severity Reaction Status Date / Time cefuroxime Allergy Unknown Verified 09/17/18 17:01 Sulfa (Sulfonamide Allergy Unknown Unknown Verified 09/17/18 17:01 Antibiotics) Home Medications Home Medications Medication Instructions Recorded Confirmed Type alprazolam 0.5 mg PO HS 09/17/18 09/17/18 History aspirin [Aspir-81] 81 mg PO QAM 09/17/18 09/17/18 History atenolol 12.5 mg PO QAM 09/17/18 09/17/18 History clopidogrel 75 mg PO QAM 09/17/18 09/17/18 History finasteride 5 mg PO QAM 09/17/18 09/17/18 History nitrofurantoin macrocrystal 50 mg PO QAM 09/17/18 09/17/18 History pantoprazole 20 mg PO QAM 09/17/18 09/17/18 History simvastatin 40 mg PO HS 09/17/18 09/17/18 History sulindac 75 mg PO BID 09/17/18 09/17/18 History terazosin 2 mg PO HS 09/17/18 09/17/18 History Past Med/Surg History Medical History Pancreatitis (Acute) Family History Father Myocardial infarction Brother Myocardial infarction Uncle Myocardial infarction Social History Preferred Language: Armenian Smoking Status: Never smoker Hx Alcohol Use: Yes (1 glass of wine a few nights a week) Hx Substance Use: No Review of Systems Review of Systems: Pertinent positives and negatives reviewed in HPI--all others negative Physical Exam Constitutional: WD/WN, vitals as above Eyes: normal visual carter by confrontation and + anicteric sclerae Neck: normal visual inspection and trachea midline Respiratory: normal respiratory effort, lungs clear to auscultation Cardiovascular: Rate/Rhythm: regular rate and regular rhythm Gastrointestinal (Abdomen): Inspection/Auscultation: abdomen not distended Percussion/Palpation: + abdomen tender (diffuse) and abdomen soft Musculoskeletal: Head/Neck/Chest: normocephalic and head atraumatic negative for edema, peripheral pulses intact Skin: no rashes, warm and dry Neurologic: awake; not confused Speech / Cognition: normal speech Psychiatric: A+Ox3, euthymic affect Results & Data Vital Signs (Past 12 Hours) Vital Signs Temp Pulse Pulse Resp BP BP Pulse Ox 09/17/18 18:38 73 18 149/88 H 94 09/17/18 16:57 72 18 171/107 H 97 09/17/18 16:15 70 17 168/87 H 96 09/17/18 14:29 36.6 C 61 20 151/77 H 98 Diagnostic Findings CXR: neg for acute KUB: moderate to large amount of stool but no obstruction ECG Findings: + PVC and + RBBB Code Status & VTE Plan Code Status DNR/DNI. "When you get to a certain age, enough is enough." VTE Prophylaxis Plan VTE Prophylaxis will be ordered: Yes
[2018-09-17] MEDS ORDERED: ONDANSETRON INJ 2 MG/ML 2 ML VIAL IV PRN (20:42)
[2018-09-17] MEDS ORDERED: MoRPHine SULFATE 2 MG/ML CARP IV PRN (20:42)
[2018-09-17] MEDS ORDERED: ACETAMINOPHEN 325 MG TAB PO PRN (20:42)
[2018-09-17] MEDS ORDERED: MAGNESIUM HYDROXIDE SUSP 30 ML UDC PO PRN (20:42)
[2018-09-17] MEDS: TERAZOSIN HCL 1 MG CAP PO SCH (21:36)
[2018-09-17] MEDS: ALPRAZolam 0.5 MG TABLET PO SCH (21:36)
[2018-09-17] MEDS: D5W AND 1/2NSS + 20MEQ KCL 20 MEQ/1,000 ML BAG IV SCH (21:36)
--- NOTE | 2018-09-17 22:55 | Ultrasound Report ---
ABDOMINAL ULTRASOUND, RIGHT UPPER QUADRANT HISTORY: Right upper quadrant pain. pancreatitis. COMPARISON: Abdominal ultrasound 11/26/2017. FINDINGS: Pancreas: Obscured by overlying bowel gas. Liver: The liver is echogenic consistent with fatty change. Gallbladder: Not well evaluated due to the overlying bowel gas. However, no gallstones identified. No definite bladder wall thickening. CBD: 3 mm. Right kidney: No hydronephrosis. Multiple renal cysts with the largest measuring 6 cm. IMPRESSION: 1. Suboptimal study due to overlying bowel gas. 2. The pancreas was obscured. 3. Normal gallbladder. No gallstones. 4. Multiple right renal cyst. 5. Hepatic steatosis. Electronically signed by: Zhang Gray M.D. 09/17/2018 10:53 PM
[2018-09-18] MEDS: D5W AND 1/2NSS + 20MEQ KCL 20 MEQ/1,000 ML BAG IV SCH ×3 (05:38→22:50)
[2018-09-18] MEDS ORDERED: ALUMINUM/MAGNESIUM SUSP 30 ML UDC PO PRN (06:18)
[2018-09-18 06:50] LABS: Basophils # (auto) 0.01 K/uL (0-0.2); Basophils % (auto) 0.1 %; Eosinophils # (auto) 0.01 K/uL (0-0.5); Eosinophils % (auto) 0.1 %; Hematocrit (blood only) 50.2 % (42-52); Hemoglobin 17.3 g/dL (14.0-18.0); Immature Granulocytes # (auto) 0.02 K/uL (0.00-0.02); Immature Granulocytes % (auto) 0.2 %; Lymphocytes # (auto) 0.61 K/uL (1.2-3.4); Lymphocytes % (auto) 6.3 %; Mean Corpuscular Hgb Conc 34.5 g/dL (32-36); Mean Corpuscular Volume 86.3 fL (80-100); Monocytes # (auto) 0.82 K/uL (0.11-0.59); Monocytes % (auto) 8.4 %; Neutrophils # (auto) 8.29 K/uL (1.4-6.5); Neutrophils % (auto) 84.9 %; Platelet Count 142 K/uL (130-400); RDW Standard Deviation 43.4 fL (36.4-46.3); Red Blood Count 5.82 M/uL (4.7-6.1); White Blood Count 9.76 K/uL (4.8-10.8)
[2018-09-18 07:24] LABS: BUN Creatinine Ratio 18.1 (10-20); Calcium 8.4 mg/dl (8.5-10.1); Est GFR (African American) 70.2; Est GFR (Non-African American) 60.5; Phosphorus 2.2 mg/dl (2.5-4.9)
[2018-09-18 09:06] LABS: Albumin Globulin Ratio 1.2 (0.9-2); Albumin Level 3.1 gm/dl (3.4-5.0); Bilirubin,Total 1.3 mg/dl (0.2-1); Globulin 2.6 gm/dl (2.5-4.0); Total Protein 5.7 gm/dl (6.4-8.2)
[2018-09-18] MEDS: ASPIRIN 81 MG ECTAB PO SCH (09:22)
[2018-09-18] MEDS: NITROFURANTOIN MACROCRYSTAL 50 MG CAP PO SCH (09:23)
[2018-09-18] MEDS: CLOPIDOGREL BISULFATE 75 MG TAB PO SCH (09:23)
[2018-09-18] MEDS: ATENOLOL 25 MG TABLET PO SCH (09:24)
[2018-09-18] MEDS: FINASTERIDE 5 MG TAB PO SCH (09:24)
[2018-09-18] MEDS: FAMOTIDINE 20 MG in SYRINGE 3 ML IV SCH ×2 (10:10→20:05)
--- NOTE | 2018-09-18 16:03 | Hospitalist Progress Note ---
Date of Service September 18, 2018 Assessment & Plan (1) Pancreatitis: recurrent pancreatitis, third bout in three years initial lipase 13k and WBC was 12k lipase down to 6k today, LFT normal, WBC normal at 9k minimal pain advance to clear liquid continue fluids at 120mL / hr RUQ US without gall stones, no CBD dilation and LFT normal which argues against this being gall stone pancreatitis consider getting CT abdomen/pelvis as outpatient once he is recovered to r/o mass he has followed with Dr. Rojas in the past, no need to involve while inpatient as he is improving likely advance diet tomorrow and try to d/c patient, his needs help at home and he would like to get back (2) HTN (hypertension): continue home meds BP stable at 113/67 (3) GERD (gastroesophageal reflux disease): continue PPI via IV for now, change back to PO on discharge Hx of Dilshad, last EGD 2014 (4) CAD (coronary artery disease): s/p multiple MIs with stents Will continue aspirin/plavix given risk no chest pain today (5) Hyperlipidemia: Hold statin, resume on d/c (6) Anxiety: continue home meds mood stable today (7) BPH (benign prostatic hyperplasia): continue home meds given IVF use (8) Recurrent UTI: Nitrofurantoin and sulidac, continue (9) DVT prophylaxis: SCDs Subjective patient feeling a lot better, no pain since admission he feels he could tolerate some liquids, not a normal appetite yet no nausea or vomiting reviewed labs, lipase down to 6k, WBC normal, LFT normal RUQ US with no evidence of gall stones reviewed old records from previous admission, seen by Dr. Rojas he had MRCP that did not show any gall stones he was supposed to get a CT abdomen/pelvis for follow up to r/o mass he had pancreatitis about three years ago and then another episode one year ago, had been well the past year Review of Systems Review of Systems: All systems reviewed & are unremarkable except as noted in HPI & below Constitutional: no fever, no sweats, no fatigue and no weakness Respiratory: no cough and no dyspnea Cardiovascular: no chest pain, no palpitations and no edema Gastrointestinal: + abdominal pain (minimal epigastric pain); no nausea, no vomiting, no constipation and no diarrhea/loose stools Physical Exam Constitutional: WD/WN, vitals as above Eyes: PERRL, conjunctivae normal, anicteric sclerae ENMT: external ear and nose normal, oropharynx normal Neck: trachea midline, no thyromegaly Respiratory: normal respiratory effort, lungs clear to auscultation Cardiovascular: RRR, no murmur, no edema Gastrointestinal (Abdomen): Inspection/Auscultation: abdomen normal to inspection and normal bowel sounds; abdomen not distended Percussion/Palpation: + abdomen tender (minimal in epigastric area) and abdomen soft; no guarding and abdomen not rigid Musculoskeletal: no cyanosis or clubbing, extremities motor strength 5/5 Skin: no rashes, warm and dry Neurologic: patellar DTR's 2+ bilat, sensation intact and PERRL, EOMI, accommodation nl, no face palsy, no dysarthria Psychiatric: A+Ox3, euthymic affect Lymphatic: no cervical or axillary lymphadenopathy Results & Data Vital Signs (Past 12 Hours) Vital Signs Temp Pulse Resp BP Pulse Ox 09/18/18 15:43 37.2 C 61 20 113/67 94 09/18/18 08:37 36.4 C L 64 16 136/81 92 Laboratory Results Laboratory Results - last 24 hr 09/17/18 09/17/18 09/18/18 15:54 15:54 06:42 WBC 12.21 H 9.76 RBC 6.40 H 5.82 Hgb 19.4 H 17.3 Hct 54.1 H 50.2 MCV 84.5 86.3 MCH 30.3 29.7 MCHC 35.9 34.5 RDW Std Deviation 42.6 43.4 RDW Coeff of Jane 13.8 14.0 Plt Count 170 142 MPV 10.0 10.0 Immature Gran % (Auto) 0.2 0.2 Neut % (Auto) 84.2 84.9 Lymph % (Auto) 8.5 6.3 [place] % (Auto) 6.7 8.4 Eos % (Auto) 0.2 0.1 Baso % (Auto) 0.2 0.1 Immature Gran # (Auto) 0.03 H 0.02 Neut # (Auto) 10.28 H 8.29 H Lymph # (Auto) 1.04 L 0.61 L [place] # (Auto) 0.82 H 0.82 H Eos # (Auto) 0.02 0.01 Baso # (Auto) 0.02 0.01 Sodium 139 Potassium 3.8 Chloride 105 Carbon Dioxide 26 Anion Gap 8.0 BUN 24 H Creatinine 1.22 Est Cr Clr Drug Dosing 39.0 Est GFR ( Amer) 60.5 Est GFR (Non-Af Amer) 52.2 BUN/Creatinine Ratio 20.1 H Glucose 109 H Calcium 9.4 Phosphorus Magnesium Total Bilirubin 1.0 AST 23 ALT 28 Alkaline Phosphatase 50 Troponin I < 0.015 Total Protein 6.8 Albumin 4.0 Globulin 2.8 Albumin/Globulin Ratio 1.4 Amylase 1095 H Lipase 24449 H 09/18/18 06:42 WBC RBC Hgb Hct MCV MCH MCHC RDW Std Deviation RDW Coeff of Jane Plt Count MPV Immature Gran % (Auto) Neut % (Auto) Lymph % (Auto) [place] % (Auto) Eos % (Auto) Baso % (Auto) Immature Gran # (Auto) Neut # (Auto) Lymph # (Auto) [place] # (Auto) Eos # (Auto) Baso # (Auto) Sodium 140 Potassium 4.0 Chloride 107 Carbon Dioxide 27 Anion Gap 6.0 BUN 20 H Creatinine 1.08 Est Cr Clr Drug Dosing 44.0 Est GFR ( Amer) 70.2 Est GFR (Non-Af Amer) 60.5 BUN/Creatinine Ratio 18.1 Glucose 134 H Calcium 8.4 L Phosphorus 2.2 L Magnesium 2.0 Total Bilirubin 1.3 H AST 18 ALT 22 Alkaline Phosphatase 42 L Troponin I Total Protein 5.7 L Albumin 3.1 L Globulin 2.6 Albumin/Globulin Ratio 1.2 Amylase Lipase 6082 H Diagnostic Findings ABDOMINAL ULTRASOUND, RIGHT UPPER QUADRANT HISTORY: Right upper quadrant pain. pancreatitis. COMPARISON: Abdominal ultrasound 11/26/2017. FINDINGS: Pancreas: Obscured by overlying bowel gas. Liver: The liver is echogenic consistent with fatty change. Gallbladder: Not well evaluated due to the overlying bowel gas. However, no gallstones identified. No definite bladder wall thickening. CBD: 3 mm. Right kidney: No hydronephrosis. Multiple renal cysts with the largest measuring 6 cm. IMPRESSION: 1. Suboptimal study due to overlying bowel gas. 2. The pancreas was obscured. 3. Normal gallbladder. No gallstones. 4. Multiple right renal cyst. 5. Hepatic steatosis. Medications Administered Current Inpatient Medications Acetaminophen (Tylenol) 650 mg PO Q4H PRN PRN Reason: pain/fever Stop: 10/17/18 20:41 Al Hydrox/Mg Hydrox/Simethicone (Maalox) 15 ml PO Q6H PRN PRN Reason: Indigestion Stop: 10/18/18 06:17 Last Admin: 09/18/18 06:29 Dose: 15 ml Documented by: Alprazolam (Xanax) 0.5 mg PO HS [facility] Stop: 10/17/18 20:59 Last Admin: 09/17/18 21:36 Dose: 0.5 mg Documented by: Aspirin (Ecotrin Ectab) [facility] Stop: 10/18/18 08:59 Last Admin: 09/18/18 09:22 Dose: 81 mg Documented by: Atenolol (Tenormin) 12.5 mg [facility] Stop: 10/18/18 08:59 Last Admin: 09/18/18 09:24 Dose: 12.5 mg Documented by: Clopidogrel Bisulfate (Plavix) [address] [facility] Stop: 10/18/18 08:59 Last Admin: 09/18/18 09:23 Dose: 75 mg Documented by: Finasteride (Proscar) 5 mg [facility] Stop: 10/18/18 08:59 Last Admin: 09/18/18 09:24 Dose: 5 mg Documented by: Potassium Chloride/Dextrose/Sod Cl (D5w And 1/2nss + 20meq Kcl) 20 meq in 1,000 mls @ 120 mls/hr IV .Q8H20M [facility] Stop: 10/17/18 20:41 Last Admin: 09/18/18 14:07 Dose: 120 mls/hr Documented by: Famotidine 20 mg/ Syringe 5 mls @ 2.5 mls/min IV BID [facility] Stop: 10/18/18 08:59 Last Admin: 09/18/18 10:10 Dose: 2.5 mls/min Documented by: Magnesium Hydroxide (Milk Of Magnesia) 30 ml PO Q6H PRN PRN Reason: Constipation Stop: 10/17/18 20:41 Miscellaneous (Order Awaiting Action) 1 ea N/A QS [facility] Stop: 10/18/18 00:00 Last Admin: 09/18/18 09:21 Dose: Not Given Documented by: Morphine Sulfate (Morphine Sulfate) 0.5 mg IV Q4H PRN PRN Reason: Pain Stop: 10/01/18 20:41 Last Admin: 09/17/18 22:50 Dose: 0.5 mg Documented by: Nitrofurantoin Macrocrystals (Macrodantin) 50 mg PO QAM [facility] Stop: 09/28/18 08:59 Last Admin: 09/18/18 09:23 Dose: 50 mg Documented by: Ondansetron HCl (Zofran) 4 mg IV Q6H PRN PRN Reason: Nausea Stop: 10/17/18 20:41 Terazosin HCl (Hytrin) 2 mg PO HS [facility] Stop: 10/17/18 20:59 Last Admin: 09/17/18 21:36 Dose: 2 mg Documented by:
[2018-09-18] MEDS: TERAZOSIN HCL 1 MG CAP PO SCH (20:04)
[2018-09-18] MEDS: ALPRAZolam 0.5 MG TABLET PO SCH (20:05)
[2018-09-19] MEDS: D5W AND 1/2NSS + 20MEQ KCL 20 MEQ/1,000 ML BAG IV SCH (07:39)
[2018-09-19] MEDS: ATENOLOL 25 MG TABLET PO SCH (07:44)
[2018-09-19] MEDS: ASPIRIN 81 MG ECTAB PO SCH (07:44)
[2018-09-19] MEDS: NITROFURANTOIN MACROCRYSTAL 50 MG CAP PO SCH (07:44)
[2018-09-19] MEDS: FINASTERIDE 5 MG TAB PO SCH (07:44)
[2018-09-19] MEDS: CLOPIDOGREL BISULFATE 75 MG TAB PO SCH (07:44)
[2018-09-19 08:16] LABS: Albumin Level 2.7 gm/dl (3.4-5.0); BUN Creatinine Ratio 12.2 (10-20); Calcium 7.9 mg/dl (8.5-10.1); Creatinine Clr Calc Pharmacy 47.1 ml/min; Est GFR (African American) 76.1; Est GFR (Non-African American) 65.6; Potassium 4.1 mmol/L (3.5-5.1)
[2018-09-19 08:21] LABS: Albumin Globulin Ratio 1.1 (0.9-2); Globulin 2.5 gm/dl (2.5-4.0); Total Protein 5.2 gm/dl (6.4-8.2)
[2018-09-19] MEDS: FAMOTIDINE 20 MG in SYRINGE 3 ML IV SCH (08:23)
--- NOTE | 2018-09-19 15:41 | Discharge Summary ---
Date of Service September 19, 2018 Admission HPI Per Admitting Provider 88 y/o M c/o abd pain. Pt states he was in his usual state of health until mid morning today when he had sudden onset of abd pain while taking his to an appt. He states that it mostly resolved, but then returned. It is diffuse and sharp. He states it was similar to prior pancreatitis episodes, so he came to the ED for eval. He states he feels fine otherwise. Pt denies fever, SOB, chest pain, n/v/c/d, LE pain or swelling. Pt was given IVF and pain medication in the ED. He states his pain went from an 8 to a 2 at this time and is more of an ache now. Pt states he was told he had gallstones with his first episode of pancreatitis several years ago. He did not need a cholecystectomy at that time. He had a second episode about 2 years ago, but has had no abd pain since that time. Admission Exam Per Admitting Provider Constitutional: WD/WN, vitals as above Eyes: normal visual carter by confrontation and + anicteric sclerae Neck: normal visual inspection and trachea midline Respiratory: normal respiratory effort, lungs clear to auscultation Cardiovascular: Rate/Rhythm: regular rate and regular rhythm Gastrointestinal (Abdomen): Inspection/Auscultation: abdomen not distended Percussion/Palpation: + abdomen tender (diffuse) and abdomen soft Musculoskeletal: Head/Neck/Chest: normocephalic and head atraumatic negative for edema, peripheral pulses intact Skin: no rashes, warm and dry Neurologic: awake; not confused Speech / Cognition: normal speech Psychiatric: A+Ox3, euthymic affect Principal Diagnosis Acute pancreatitis Discharge Exam Constitutional WD/WN, vitals as above Eyes PERRL, conjunctivae normal, anicteric sclerae ENMT external ear and nose normal, oropharynx normal Neck trachea midline, no thyromegaly Respiratory normal respiratory effort, lungs clear to auscultation Cardiovascular RRR, no murmur, no edema Gastrointestinal (Abdomen) Inspection/Auscultation: abdomen normal to inspection and normal bowel sounds; abdomen not distended Percussion/Palpation: abdomen soft; abdomen nontender, no guarding and abdomen not rigid Musculoskeletal no cyanosis or clubbing, extremities motor strength 5/5 Skin no rashes, warm and dry Neurologic patellar DTR's 2+ bilat, sensation intact and PERRL, EOMI, accommodation nl, no face palsy, no dysarthria Psychiatric A+Ox3, euthymic affect Lymphatic no cervical or axillary lymphadenopathy Discharge Data Allergies Allergy/AdvReac Type Severity Reaction Status Date / Time cefuroxime Allergy Unknown Verified 09/17/18 17:01 Sulfa (Sulfonamide Allergy Unknown Unknown Verified 09/17/18 17:01 Antibiotics) Consultations 09/17/18 16:47 ED Decision to Admit Stat 09/17/18 16:56 ED Decision to Admit Stat Ordered Studies 09/17/18 20:42 US gallbladder Stat Hospital Course (1) Pancreatitis: recurrent pancreatitis, third bout in three years initial lipase 13k and WBC was 12k lipase down to 900 on day of discharge LFT normal, WBC normal no pain, tolerating light diet RUQ US without gall stones, no CBD dilation and LFT normal which argues against this being gall stone pancreatitis he has followed with Dr. 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 Wilson, discuss referral to GI vs general surgery to consider cholecystectomy certainly no immediate indication for removing gall bladder patient is concerned that he is going to have another bout of pancreatitis in a few months (2) HTN (hypertension): continue home meds BP stable (3) GERD (gastroesophageal reflux disease): continue PPI via IV for now, change back to PO on discharge Hx of Dilshad, last EGD 2014 (4) CAD (coronary artery disease): s/p multiple MIs with stents Will continue aspirin/plavix given risk no chest pain today (5) Hyperlipidemia: Hold statin, resume on d/c (6) Anxiety: continue home meds mood stable today (7) BPH (benign prostatic hyperplasia): continue home meds given IVF use (8) Recurrent UTI: Nitrofurantoin and sulidac, continue (9) DVT prophylaxis: SCDs Total Time Total Time Spent Total Time Spent (In Minutes): 40 minutes Total Time Includes: Examination of the Patient, Discharge Planning, Medication Reconciliation and Other (long talk with patient's daughter at the bedside) Discharge Plan Discharge Items Patient Disposition: Home - Self-Care Reason For Visit: acute pancreatitis Discharge Diagnosis: Acute pancreatitis Condition: Good Discharge Goals: Decrease discomfort, Diagnostic testing and Improve disease control Activity: Resume your previous activity Non-emergency contact: Primary Care Provider and Intermediate Card Tender Call non-emergency contact if: you have any medication questions, your symptoms worsen, your pain is not controlled and you have a fever Follow-up/Referrals: Rah Wilson MD [Primary Care Provider] - Diet: Heart Healthy and Low Fat Addtl Provider Instructions: Medications: - PROTONIX: take twice a day for two weeks, can taper to once a day after that - SULINDAC: hold for two weeks Acute pancreatitis: recovered quickly with bowel rest and IV fluids lipase down to 900 from 16,000 on admission no evidence of gall stones or dilated biliary ducts you had extensive work up in the past with MRCP (MRI) that did not show any pathology you followed with Dr. Rojas in the past as well could consider a CT of the abdomen/pelvis with IV contrast in 2 weeks to look for any evidence of pancreatic mass, defer to Dr. Wilson at this point you have had three episodes in three years with at least a year in between attacks get rest, stay well hydrated over the next few days, advance your diet, limit greasy foods FOLLOW UP - Dr. Wilson in one week, call for appt Prescriptions: Continued nitrofurantoin macrocrystal 50 mg capsule 50 mg PO QAM RF: 0 atenolol 25 mg tablet 12.5 mg PO QAM RF: 0 clopidogrel 75 mg tablet 75 mg PO QAM RF: 0 aspirin [Aspir-81] 81 mg Tablet,Delayed Release (Dr/Ec) 81 mg PO QAM RF: 0 simvastatin 40 mg tablet 40 mg PO HS RF: 0 alprazolam 0.5 mg tablet 0.5 mg PO HS RF: 0 terazosin 2 mg capsule 2 mg PO HS RF: 0 finasteride 5 mg tablet 5 mg PO QAM RF: 0 Changed pantoprazole 20 mg tablet,delayed release (DR/EC) 20 mg PO BID 14 Days Qty: 28 RF: 1 Discontinued sulindac 150 mg tablet 75 mg PO BID RF: 0 Stand-Alone Forms: [facility] Discharge Orders: Discharge Order (Routine); Ordered 09/19/18 Ordered By: Joaquín Humphrey Admission Data Admit Date/Time: 09/17/18 18:56 Attending Provider: Joaquín Humphrey Admit Provider: Courtney Zepeda Primary Care Provider: Rah Wilson Other Providers: Courtney Zepeda Service: Medical Other Interventions: Discharge Summary Assessment (RN) Last Done: 09/19/18 11:02 DC Date/Time DO NOT enter until pt leaves facility: 09/19/18 11:40
[2018-09-20] MEDS ORDERED: PANTOprazole 40 MG TAB PO SCH (09:00)
== END 2018-09-19 11:40 | disposition home or self-care (01) | DRG 439 ==
LOC: ED 14:14 → SUATTDRO 18:56 → 4E 18:56